=== PATIENT | male | born 1965 | race Caucasian/White ===

== ENCOUNTER 2016-12-16 13:18 | Observation (INO) | payer OTHER ==
[~2016-12-16] VITALS: Ht 170.2 cm; Wt 83.7 kg
[~2016-12-16 13:18] MED LIST: ALBUAER19 INH; ASPI1TAB83 PO; CICL160A INH; DIPH50TA10 PO; INSUINJ4 SQ; ISON300T4 PO; LATA0.009 OPB; LOVA20TA4 PO; MELO15TA4 PO; METO50TA17 PO; MTR/600 PO; NYSTPOW2 TOP; PYRI50TA77 PO; SERT-234 PO
[2016-12-16 13:57] LABS: BASO % 0.8 %; BASO ABS # 0.07 K/uL (0-0.2); COMPLETE YES; HEMATOCRIT 40.8 % (42-52); IG% 0.2 %; LYMPH % 28.2 %; LYMPH ABS # 2.52 K/uL (1.2-3.4); MEAN CELL VOLUME 94.4 fL (80-100); MEAN CORPUSCULAR HEMOGLOBIN 30.8 pg (25-34); MEAN CORPUSCULAR HGB CONC 32.6 g/dl (32-36); MEAN PLATELET VOLUME 8.5 fL (7.4-10.4); MONO % 10.2 %; NEUT % 58.6 %; PLATELET COUNT 304 K/uL (130-400); RED BLOOD COUNT 4.32 M/uL (4.7-6.1); WHITE BLOOD COUNT 8.94 K/uL (4.8-10.8)
[2016-12-16] MEDS ORDERED: LRS20 PO ×2 (14:03→14:36)
[2016-12-16] MEDS ORDERED: DULO60CA44 PO ×2 (14:04→14:36)
[2016-12-16] MEDS ORDERED: DORZ2SOL17 OP ×2 (14:04→14:36)
[2016-12-16] MEDS ORDERED: GUAI1TAB27 PO ×2 (14:05→14:36)
[2016-12-16] MEDS ORDERED: KETO10TA PO ×2 (14:06→14:36)
[2016-12-16] MEDS ORDERED: LATA0.5S OP ×2 (14:06→14:36)
[2016-12-16] MEDS ORDERED: LISI-729 PO (14:07)
[2016-12-16] MEDS ORDERED: LOVA40TA4 PO ×2 (14:07→14:36)
[2016-12-16] MEDS ORDERED: MICO2CRE63 TOP (14:09)
[2016-12-16] MEDS ORDERED: MIRT15TA2 PO ×2 (14:09→14:36)
[2016-12-16] MEDS ORDERED: NTRGSL/4 UT ×2 (14:10→14:36)
--- NOTE | 2016-12-16 14:11 | DIAGNOSTIC IMAGING REPORT ---
CHEST ONE VIEW PORTABLE HISTORY: 51 years-old Male Chest Pain acute atypical chest pain. COMPARISON: None available. TECHNIQUE: Portable upright AP view of the chest FINDINGS: Cardiac silhouette is upper limits of normal. Prior median sternotomy. There is atherosclerosis of the aorta. No pneumothorax, pleural effusion or focal airspace consolidation. Fusion hardware involves the lower cervical spine. IMPRESSION: No acute cardiopulmonary process. The above report was generated using voice recognition software. It may contain grammatical, syntax or spelling errors. Electronically signed by: Jose L Velez M.D. 12/16/2016 2:10 PM Dictated Date/Time: 12/16/2016 2:07 PM
[2016-12-16] MEDS ORDERED: INSHNI SC ×2 (14:12→14:36)
[2016-12-16] MEDS ORDERED: SRVDIN50 INH ×2 (14:12→14:36)
[2016-12-16] MEDS ORDERED: NYST100016 TOP (14:12)
[2016-12-16 14:14] LABS: BLOOD UREA NITROGEN 16 mg/dl (7-18); BUN/CREATININE RATIO 17.5 (10-20); CALCIUM 8.2 mg/dl (8.5-10.1); CARBON DIOXIDE 27 mmol/L (21-32); CHLORIDE 110 mmol/L (98-107); GLUCOSE 97 mg/dl (70-99); SODIUM 141 mmol/L (136-145)
[2016-12-16] MEDS ORDERED: ASPI81TA28 PO (14:36)
[2016-12-16] MEDS ORDERED: METO50TA16 PO (14:36)
[2016-12-16] MEDS ORDERED: NYST80OI TOP (14:36)
[2016-12-16] MEDS ORDERED: LISI5TAB PO (14:36)
[2016-12-16] MEDS ORDERED: MICO2CRE48 TOP (14:36)
[2016-12-16] MEDS ORDERED: CICL160A INH (14:36)
[2016-12-16] MEDS ORDERED: VNTHFA/IN INH (14:38)
[2016-12-16] MEDS ORDERED: TMPOPS15 OPB (14:38)
[2016-12-16 15:03] VITALS: BP 112/72; PULSE 54; TEMP 36.7; O2SAT 95; Ht 170.2 cm; Wt 83.7 kg
[2016-12-16] MEDS ORDERED: NITROGLYCERIN 0.4 MG SL PER TAB CHARGE SL PRN ×2 (15:15→16:15)
[2016-12-16] MEDS ORDERED: PNEUMOCOCCAL POLYSACCHARIDES 25 MCG/0.5 ML VIAL/SYR IM. ONE (15:45)
[2016-12-16] MEDS ORDERED: PNEUMOCOCCAL ADMINISTRATION CHARGE ONE (15:45)
[2016-12-16] MEDS ORDERED: GLUCOSE 40% GEL 15 GM TUBE PO PRN (16:15)
[2016-12-16] MEDS ORDERED: DEXTROSE 50% 50 ML SYR IV PRN (16:15)
[2016-12-16] MEDS ORDERED: ONDANSETRON INJ 2 MG/ML 2 ML VIAL IV PRN (16:15)
[2016-12-16] MEDS ORDERED: ALBUTEROL HFA 8 GM INHALER INH PRN (16:15)
[2016-12-16] MEDS ORDERED: GLUCAGON FOR INJ 1 MG VIAL SQ PRN (16:15)
[2016-12-16] MEDS ORDERED: POLYETHYLENE (MIRALAX) 17 GM PACK PO PRN (16:15)
[2016-12-16] MEDS ORDERED: GLUCOSE 10 TABS/TUBE PO PRN (16:15)
[2016-12-16] MEDS ORDERED: OPTIRAY 320 IV PRN (17:00)
[2016-12-16] MEDS ORDERED: IV FLUIDS COMPLETED PRN (17:00)
--- NOTE | 2016-12-16 17:07 | DIAGNOSTIC IMAGING REPORT ---
CHEST COMBO ANGIO DISSECTION CLINICAL HISTORY: Chest pain. COMPARISON STUDY: Chest radiograph December 16, 2016. TECHNIQUE: Unenhanced and arterial phase imaging of the chest was performed. Injection 119 cc Optiray 320 IV was uneventful. Sagittal and coronal reconstructions were viewed as well as maximal intensity projections on an independent 3-D workstation. FINDINGS: The caliber of the thoracic aorta is normal. There is no evidence of thoracic aortic dissection or intramural hematoma. The heart is mildly enlarged. There are postsurgical findings consistent with median sternotomy and coronary bypass grafting. Central airways are patent. No pneumothorax or pleural effusion is present. Groundglass opacities favor atelectasis. There is no consolidation to suggest pneumonia. No enlarged thoracic lymph nodes are present. There is bilateral gynecomastia. No pulmonary emboli are identified. Visualized portions of the upper abdomen are unremarkable. The bony thorax is unremarkable. IMPRESSION: 1. No thoracic aortic dissection. 2. No acute intrathoracic findings. No pulmonary emboli identified. 3. Mild cardiomegaly. Status post median sternotomy and coronary artery bypass grafting. Electronically signed by: Feng Arthur M.D. 12/16/2016 5:05 PM Dictated Date/Time: 12/16/2016 4:55 PM
--- NOTE | 2016-12-16 17:26 | History and Physical ---
History & Physical Date & Time of Service: Dec 16, 2016 at 17:12 Chief Complaint: Chest Pain Primary Care Physician: Radha BELL History of Present Illness Source: patient, clinic records, EMS Attending: Dr. Dupont Patient is a 51-year-old male with significant past medical history of coronary artery disease with subjective history of W[place] 5 with subsequent CABG 2 approximately 3 years ago who initially presented to the emergency department from [facility] with complaints of worsening frequency of chest pain and increasing use of sublingual nitroglycerin. The patient reports having had 5 MIs leading to a double bypass surgery that was performed in [facility]. Since his CABG, he has not had cardiology follow-up. He has taken his prescribed medications, however. He reports that prior to the last few days, he has only had to use nitroglycerin occasionally. He became concerned as his symptoms of chest pain have increased in frequency causing him to take up to 2-3 subungual nitroglycerin per day to help with his symptoms. He reports that his chest pain is independent of activity. It sometimes wakes him from sleep. He describes his heart racing and then slowing with associated sweatiness. He reports that this proceeds the chest pain. He describes it as the "exact same" pain he experienced during his previous MIs. Today, he did take a nitroglycerin and then report to the [facility] where he was provided a second nitroglycerin. An EKG was obtained and the patient was subsequently directed to the emergency department. The patient received a total of 3 nitroglycerin today. He reports that he is completely chest pain-free at this time. During his chest pain episodes he denies any associated headaches, dizziness, lightheadedness, hemoptysis, nausea, vomiting, or abdominal pain. He does complain of chronic neck and low back pain for which he had been treated with multiple narcotic pain medications in the outpatient setting. He was recently started on baclofen and Ultram this past week. He reports that his done nothing for his symptoms. On presentation to the emergency department, the patient was found to have an unchanged EKG from prior. He has no elevation of troponin. Cardiac enzymes are otherwise unremarkable. He had an unremarkable chest x-ray. Patient received no other medications while the emergency Department. 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 Social History Smoking Status: Current Every Day Smoker (4-5/day - h/o 1ppd x31 yrs - attempting to quit) Smokeless Tobacco Use: No Alcohol Use: Drug Use: cocaine (previous) Marital Status: single Housing status: other Occupational Status: other ([employer]) Immunizations History of Influenza Vaccine: Yes History of Tetanus Vaccine?: Yes History of Pneumococcal: Yes History of Hepatitis B Vaccine: Yes Multi-Drug Resistant Organisms History of MDRO: No Allergies Coded Allergies: No Known Allergies (Unverified , 12/16/16) Home Medications Scheduled Aspirin (Aspirin Ec), 81 MG PO DAILY Baclofen (Baclofen), 20 MG PO TID Ciclesonide (Alvesco), 1 PUFF INH BID Dorzolamide Hcl (Trusopt Oph), 1 DROPS OP BID Duloxetine Hcl (Cymbalta), 60 MG PO DAILY Guaifenesin (Guaifenesin), 400 MG PO TID Insulin Human NPH (Humulin N), 5 UNITS SC BID Latanoprost (Xalatan 0.005% Oph Daniella), 1 DROPS OP DAILY Lisinopril (Prinivil), 5 MG PO DAILY Lovastatin (Mevacor), 40 MG PO HS Metoprolol Tartrate (Lopressor) (Lopressor), 50 MG PO BID Miconazole Nitrate Vaginal (Miconazole), 1 APPLN TOP BID Mirtazapine Soltab (Remeron Soltab), 15 MG PO HS Nitroglycerin (Nitrostat), 0.4 MG UT PRN Nystatin (Topical) (Nystatin), 1 APPLN TOP BID Salmeterol Xinafoate (Serevent Diskus), 1 PUFF INH BID Timolol Maleate (Timolol 0.5% Oph Soln 15 Ml), 1 DROP OPB QAM Scheduled PRN Albuterol Hfa (Ventolin Hfa), 2 PUFFS INH QID PRN for SOB/Wheezing Ketorolac Tromethamine (Toradol), 10 MG PO TID PRN for Pain Review of Systems A complete 10-point Review of Systems was discussed with the patient, with pertinent positives and negatives listed in the History of Present Illness. All remaining Review of Systems questions can be considered negative unless otherwise specified. Physical Exam Vital Signs Date Time Temp Pulse Resp B/P (MAP) Pulse Ox O2 Delivery O2 Flow Rate FiO2 12/16/16 16:35 61 10 114/82 94 Room Air 12/16/16 16:05 53 15 107/72 94 Room Air 12/16/16 15:06 55 20 119/77 94 Room Air 12/16/16 15:03 36.7 54 20 112/72 95 Room Air 12/16/16 14:30 53 20 130/76 94 Room Air 12/16/16 14:00 50 14 120/75 93 Room Air 12/16/16 13:37 54 12/16/16 13:30 95 Room Air 12/16/16 13:30 36.7 51 14 131/85 95 Room Air 12/16/16 13:30 95 Room Air VITAL SIGNS - Vital signs and nursing notes were reviewed. SKIN - Multiple tattoos. Well healed incision site to the central portion of the chest. GENERAL - 51-year-old male appearing his stated age who is in no acute distress. Communicates well with provider and answers questions appropriately. HEAD - NC/AT. EYES - PERRL with EOMI bilaterally. Sclera anicteric. Palpebral conjunctiva pink and moist with no injection noted. EARS - No deformities of external structures noted on gross examination bilaterally. No pain elicited with palpation of the tragus bilaterally. External auditory canals without discharge or otorrhea. Tympanic membranes pearly marie without retraction or bulging. NOSE - Midline and without cyanosis. No epistaxis or purulent drainage noted. Septum midline without deviation or septal hematoma noted. MOUTH/OROPHARYNX - Without perioral cyanosis. Buccal mucosa pink and moist and without leukoplakia. Tongue midline with equal elevation of palate bilaterally. No tonsillar hypertrophy, erythema, or exudates noted. NECK - Neck with FROM. LUNGS - Chest wall symmetric without accessory muscle use, intercostals retractions, or central cyanosis. Normal vesicular breath sounds CTA B/L. No wheezes, rales, or rhonchi appreciated. CARDIAC - RRR with S1/S2. No murmur, rubs, or gallops appreciated. ABDOMEN - Abdominal contour flat and without pulsations or visible masses. BS normoactive all four quadrants. Subjective TTP in the upper abdomen which was not present with distraction. No palpable masses, hepatosplenomegaly, or ascites noted. EXTREMITIES - No clubbing or peripheral cyanosis. No pretibial edema present. +5 /5 strength noted in UE/LE bilaterally. NEUROLOGIC - Cranial nerves II through XII grossly intact. Sensory intact to light touch throughout. PSYCH - A&Ox3 and cooperates fully with examiner. Pt is very pleasant and interacts well with examiner. Diagnostics Laboratory Results Results Past 24 Hours Test 12/16/16 13:40 12/16/16 16:12 Range/Units White Blood Count 8.94 4.8-10.8 K/uL Red Blood Count 4.32 4.7-6.1 M/uL Hemoglobin 13.3 14.0-18.0 g/dL Hematocrit 40.8 42-52 % Mean Corpuscular Volume 94.4 80-100 fL Mean Corpuscular Hemoglobin 30.8 25-34 pg Mean Corpuscular Hemoglobin Concent 32.6 32-36 g/dl Platelet Count 304 130-400 K/uL Mean Platelet Volume 8.5 7.4-10.4 fL Neutrophils (%) (Auto) 58.6 % Lymphocytes (%) (Auto) 28.2 % Monocytes (%) (Auto) 10.2 % Eosinophils (%) (Auto) 2.0 % Basophils (%) (Auto) 0.8 % Neutrophils # (Auto) 5.24 1.4-6.5 K/uL Lymphocytes # (Auto) 2.52 1.2-3.4 K/uL Monocytes # (Auto) 0.91 0.11-0.59 K/uL Eosinophils # (Auto) 0.18 0-0.5 K/uL Basophils # (Auto) 0.07 0-0.2 K/uL RDW Standard Deviation 49.8 36.4-46.3 fL RDW Coefficient of Variation 14.4 11.5-14.5 % Immature Granulocyte % (Auto) 0.2 % Immature Granulocyte # (Auto) 0.02 0.00-0.02 K/uL Sodium Level 141 136-145 mmol/L Potassium Level 4.0 3.5-5.1 mmol/L Chloride Level 110 98-107 mmol/L Carbon Dioxide Level 27 21-32 mmol/L Anion Gap 4.0 3-11 mmol/L Blood Urea Nitrogen 16 7-18 mg/dl Creatinine 0.90 0.60-1.40 mg/dl Est Creatinine Clear Calc Drug Dose 101.5 ml/min Estimated GFR () 114.2 Estimated GFR (Non- 98.5 BUN/Creatinine Ratio 17.5 10-20 Random Glucose 97 70-99 mg/dl Calcium Level 8.2 8.5-10.1 mg/dl Total Creatine Kinase 59 39-308 U/L Creatine Kinase MB < 0.5 0.5-3.6 ng/ml Creatine Kinase MB Ratio 0-3.0 Troponin I < 0.015 0-0.045 ng/ml Diagnostic Radiology Radiological imaging and reports were reviewed by myself. Radiologist's Interpretation as follows: CHEST ONE VIEW PORTABLE HISTORY: 51 years-old Male Chest Pain acute atypical chest pain. COMPARISON: None available. TECHNIQUE: Portable upright AP view of the chest FINDINGS: Cardiac silhouette is upper limits of normal. Prior median sternotomy. There is atherosclerosis of the aorta. No pneumothorax, pleural effusion or focal airspace consolidation. Fusion hardware involves the lower cervical spine. IMPRESSION: No acute cardiopulmonary process. CHEST COMBO ANGIO DISSECTION CLINICAL HISTORY: Chest pain. COMPARISON STUDY: Chest radiograph December 16, 2016. TECHNIQUE: Unenhanced and arterial phase imaging of the chest was performed. Injection 119 cc Optiray 320 IV was uneventful. Sagittal and coronal reconstructions were viewed as well as maximal intensity projections on an independent 3-D workstation. FINDINGS: The caliber of the thoracic aorta is normal. There is no evidence of thoracic aortic dissection or intramural hematoma. The heart is mildly enlarged. There are postsurgical findings consistent with median sternotomy and coronary bypass grafting. Central airways are patent. No pneumothorax or pleural effusion is present. Groundglass opacities favor atelectasis. There is no consolidation to suggest pneumonia. No enlarged thoracic lymph nodes are present. There is bilateral gynecomastia. No pulmonary emboli are identified. Visualized portions of the upper abdomen are unremarkable. The bony thorax is unremarkable. IMPRESSION: 1. No thoracic aortic dissection. 2. No acute intrathoracic findings. No pulmonary emboli identified. 3. Mild cardiomegaly. Status post median sternotomy and coronary artery bypass grafting. EKG EKG was obtained and reviewed by myself. EKG demonstrates a sinus bradycardia at a rate of [address] or T-wave abnormalities appreciated per interpretation. EKG essentially unchanged from 04/25/2015. Impression Assessment and Plan 51-year-old male admitted to telemetry and observation status for cardiac rule out in the setting of significant cardiac disease with CABG 2. CHEST PAIN with H/O CAD, HTN, CABG x2: * Patient is without chest pain at this time. He does have significant past medical history which is concerning without recent evaluation. He has no EKG changes suggestive of acute event at this point. * Trend troponin every 8 hours. * A.m. EKGs and EKGs with chest pain. * Echocardiogram for further evaluation. * Continue with metoprolol, Cipro, lovastatin, and nitroglycerin when necessary. * Appreciate cardiology consultation. COPD: * Will continue home inhalers. * Will substitute Flovent for Alvesco. * Will add nebulizers every 6 when necessary cough/wheezing. * Chest x-ray and CT unremarkable. HISTORY OF LATENT TUBERCULOSIS: * Subjectively completed course of antibiotics. * Imaging studies not suggestive of acute infection or worrisome lesions. IDDM: * Insulin coverage per nursing protocol. * A1c pending. * Appreciate glycemic consultation. GLAUCOMA: * Continue home medications. CHRONIC PAIN: * Continue baclofen and Toradol as previously prescribed. * Would avoid narcotic pain medications in the setting of this patient given his history of substance abuse. * Will add PO Tylenol pending LFTs. TOBACCO ABUSE: * Provided smoking cessation. * Will provided Nicotine patch PRN. PSYCH: * Continue Remeron and Cymbalta. Please refer to my attending physician's documentation for any further recommendations Resident Physician Supervision Note: Pt seen examined independently. I discussed the case with the PA and agree with the findings and plan as documented in the note. Any exceptions or clarifications are listed here: Documented By: Juan Dupont 51 y/o M extensive history of CAD - WY x 5 - bypass - 2 vessel 3 yrs prior presenting from [facility] with CP Inital w/u WNL OE AAO x 3 S1,2 R CTAB NT, ND No CCE Pt has poor understanding of medical issues - suspect baseline mild cognitive impairment P: He may need f/u for multiple issues inc lung disease - COPD and was recently treated for latent TB Describes night sweats and occ SOB so we will obtain a CTA prior to DC Would hold off on additional [place] aside from a R/O as he has adequate outpt f/u Advised on smoking cessation Above discussed with pt, PA, ER attending Level of Care Telemetry (observation) Advanced Directives Existing Advance Directive: No Existing Living Will: No Existing Power of Car Dumper Operator: No Existing Health Care Proxy: Yes ([facility]) Resuscitation Status FULL RESUSCITATION VTE Prophylaxis VTE Risk Assessment Done? Y/N: Yes Risk Level: Moderate Given or contraindicated: Unfractionated heparin SQ, SCD's Social Service Consult None Apply
--- NOTE | 2016-12-16 17:27 | EMERGENCY ROOM VISIT NOTE ---
History Report prepared by Aminah: Annette Santillan Under the Supervision of: Dr. Dat Quick D.O. First contact with patient: 13:18 Stated Complaint: CHEST PAIN History of Present Illness The patient is a 51 year old male who presents to the Emergency Room with complaints of intermittent chest pain for the past few days. 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 Over the past few days he has been having central chest paint that he describes as both sharp and a pressure. He states that this feels very similar to the pain he had with his previous MIs. The patient states that his heart has been racing and he has been flushed and diaphoretic. He has been taking nitro for his pain and that has been helping. He received aspirin in the ambulance en route to the hospital. The patient denies any arm pain or jaw pain, and notes that he never had that with his previous MIs. He estimates that his most recent cardiac catheterization was about 6 years ago. Pt denies headache,fevers, nausea, vomiting, diarrhea, pain with urination, and melena. He denies any new shortness of breath. Source of History: patient Onset: a few days ago Position: chest Quality: pressure, sharp Timing: intermittent Modifying Factors (Relieving): other (nitro) Associated Symptoms: + diaphoresis, No fevers, No headache, No SOB, No nausea, No vomiting, No melena, No diarrhea, No urinary symptoms Review of Systems See HPI for pertinent positives & negatives. A total of 10 systems reviewed and were otherwise negative. 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 Social History Smoking Status: Current Every Day Smoker Drug Use: none Marital Status: single Housing Status: other Occupation Status: other Current/Historical Medications Scheduled Aspirin (Aspirin Ec), 81 MG PO DAILY Baclofen (Baclofen), 20 MG PO TID Ciclesonide (Alvesco), 1 PUFF INH BID Dorzolamide Hcl (Trusopt Oph), 1 DROPS OP BID Duloxetine Hcl (Cymbalta), 60 MG PO DAILY Guaifenesin (Guaifenesin), 400 MG PO TID Insulin Human NPH (Humulin N), 5 UNITS SC BID Latanoprost (Xalatan 0.005% Oph Daniella), 1 DROPS OP DAILY Lisinopril (Prinivil), 5 MG PO DAILY Lovastatin (Mevacor), 40 MG PO HS Metoprolol Tartrate (Lopressor) (Lopressor), 50 MG PO BID Miconazole Nitrate Vaginal (Miconazole), 1 APPLN TOP BID Mirtazapine Soltab (Remeron Soltab), 15 MG PO HS Nitroglycerin (Nitrostat), 0.4 MG UT PRN Nystatin (Topical) (Nystatin), 1 APPLN TOP BID Salmeterol Xinafoate (Serevent Diskus), 1 PUFF INH BID Timolol Maleate (Timolol 0.5% Oph Soln 15 Ml), 1 DROP OPB QAM Scheduled PRN Albuterol Hfa (Ventolin Hfa), 2 PUFFS INH QID PRN for SOB/Wheezing Ketorolac Tromethamine (Toradol), 10 MG PO TID PRN for Pain Allergies Coded Allergies: No Known Allergies (Unverified , 12/16/16) Physical Exam Vital Signs Date Time Temp Pulse Resp B/P (MAP) Pulse Ox O2 Delivery O2 Flow Rate FiO2 12/16/16 16:35 61 10 114/82 94 Room Air 12/16/16 16:05 53 15 107/72 94 Room Air 12/16/16 15:06 55 20 119/77 94 Room Air 12/16/16 15:03 36.7 54 20 112/72 95 Room Air 12/16/16 14:30 53 20 130/76 94 Room Air 12/16/16 14:00 50 14 120/75 93 Room Air 12/16/16 13:37 54 12/16/16 13:30 95 Room Air 12/16/16 13:30 36.7 51 14 131/85 95 Room Air 12/16/16 13:30 95 Room Air Physical Exam GENERAL: alert, sitting up in bed, well appearing, well nourished, no distress, non-toxic EYE EXAM: normal conjunctiva OROPHARYNX: no exudate, no erythema, lips, buccal mucosa, and tongue normal and mucous membranes are moist NECK: supple, no nuchal rigidity, no adenopathy, non-tender LUNGS: Clear to auscultation. Normal chest wall mechanics HEART: no murmurs, S1 normal and S2 normal CHEST: Old midline sternal incision ABDOMEN: abdomen soft, non-tender, normo-active bowel sounds, no masses, no rebound or guarding. BACK: Back is symmetrical on inspection and there is no deformity, no midline tenderness, no CVA tenderness. SKIN: no rashes and no bruising, multiple tattoos UPPER EXTREMITIES: upper extremities are grossly normal. Radial pulses equal bilaterally. LOWER EXTREMITIES: No pitting edema. Calves equal bilaterally. NEURO EXAM: Normal sensorium, cranial nerves II-XII grossly intact, normal speech, no gross weakness of arms, no gross weakness of legs. Medical Decision & Procedures ER Provider Diagnostic Interpretation: Repeat ECG reveals sinus bradycardia at 56, left axis deviation, septal Q-waves , no ectopy. Radiology results as stated below per my review and the radiologist's interpretation: CHEST ONE VIEW PORTABLE HISTORY: 51 years-old Male Chest Pain acute atypical chest pain. COMPARISON: None available. TECHNIQUE: Portable upright AP view of the chest FINDINGS: Cardiac silhouette is upper limits of normal. Prior median sternotomy. There is atherosclerosis of the aorta. No pneumothorax, pleural effusion or focal airspace consolidation. Fusion hardware involves the lower cervical spine. IMPRESSION: No acute cardiopulmonary process. The above report was generated using voice recognition software. It may contain grammatical, syntax or spelling errors. Electronically signed by: Jose L Velez M.D. 12/16/2016 2:10 PM Dictated Date/Time: 12/16/2016 2:07 PM Laboratory Results 12/16/16 13:40 Red Blood Count 4.32, Mean Corpuscular Volume 94.4, Mean Corpuscular Hemoglobin 30.8, Mean Corpuscular Hemoglobin Concent 32.6, Mean Platelet Volume 8.5, Neutrophils (%) (Auto) 58.6, Lymphocytes (%) (Auto) 28.2, Monocytes (%) (Auto) 10.2, Eosinophils (%) (Auto) 2.0, Basophils (%) (Auto) 0.8, Neutrophils # (Auto ) 5.24, Lymphocytes # (Auto) 2.52, Monocytes # (Auto) 0.91, Eosinophils # (Auto ) 0.18, Basophils # (Auto) 0.07 12/16/16 13:40 Test 12/16/16 13:40 White Blood Count 8.94 K/uL (4.8-10.8) Red Blood Count 4.32 M/uL (4.7-6.1) Hemoglobin 13.3 g/dL (14.0-18.0) Hematocrit 40.8 % (42-52) Mean Corpuscular Volume 94.4 fL (80-100) Mean Corpuscular Hemoglobin 30.8 pg (25-34) Mean Corpuscular Hemoglobin Concent 32.6 g/dl (32-36) Platelet Count 304 K/uL (130-400) Mean Platelet Volume 8.5 fL (7.4-10.4) Neutrophils (%) (Auto) 58.6 % Lymphocytes (%) (Auto) 28.2 % Monocytes (%) (Auto) 10.2 % Eosinophils (%) (Auto) 2.0 % Basophils (%) (Auto) 0.8 % Neutrophils # (Auto) 5.24 K/uL (1.4-6.5) Lymphocytes # (Auto) 2.52 K/uL (1.2-3.4) Monocytes # (Auto) 0.91 K/uL (0.11-0.59) Eosinophils # (Auto) 0.18 K/uL (0-0.5) Basophils # (Auto) 0.07 K/uL (0-0.2) RDW Standard Deviation 49.8 fL (36.4-46.3) RDW Coefficient of Variation 14.4 % (11.5-14.5) Immature Granulocyte % (Auto) 0.2 % Immature Granulocyte # (Auto) 0.02 K/uL (0.00-0.02) Anion Gap 4.0 mmol/L (3-11) Est Creatinine Clear Calc Drug Dose 101.5 ml/min Estimated GFR () 114.2 Estimated GFR (Non- 98.5 BUN/Creatinine Ratio 17.5 (10-20) Calcium Level 8.2 mg/dl (8.5-10.1) Total Creatine Kinase 59 U/L (39-308) Creatine Kinase MB < 0.5 ng/ml (0.5-3.6) Creatine Kinase MB Ratio (0-3.0) Troponin I < 0.015 ng/ml (0-0.045) Laboratory results per my review. Medications Administered Medications (Trade) Dose Ordered Sig/Los Route Start Time Stop Time Status Last Admin Dose Admin Nitroglycerin (Nitrostat Tab) 0.4 mg Q5M PRN SL 12/16/16 15:15 01/15/17 15:14 12/16/16 15:07 0.4 MG ECG Indication: chest pain Rate (beats per minute): 52 Rhythm: sinus bradycardia Findings: Q waves (Septal), left axis deviation Comparison ECG Date: 04/25/2015 Change: no significant change ED Course ED COURSE: Vital signs were reviewed and showed bradycardic The patients medical record was reviewed The above diagnostic studies were performed and reviewed. ED treatments and interventions as stated above. 1318: The patient was evaluated in room A3. A complete history and physical examination was performed. 1435: I spoke with Dr. Dupont. We discussed the patient's case. The patient will be evaluated by the [facility] for further management. 1441: Upon reevaluation, the patient is resting comfortably. I discussed my findings with the patient and he understands and agrees with the treatment plan. Based on the patients age, coexisting illnesses, exam and lab findings the decision to treat as an inpatient was made. The patient remained stable while under my care. The patient appeared well at the time of discharge. 1515: Nitroglycerin 0.4 mg SL - PRN Medical Decision Differential diagnoses includes but is not limited to acute coronary syndrome, myocardial infarction, pericarditis, pulmonary embolus, aortic dissection, pneumonia, pneumothorax, musculoskeletal, shingles, esophageal. Patient is a 51-year-old male presents to the ER for midsternal chest pain which she describes as sharp and pressure. He notes this does feel like his previous NH. He has had a previous bypass greater than 6 years ago. CBC or BMP , LFTs and troponin were unremarkable. EKG was unremarkable. Patient was pain free but did have a recurrence of this chest pain and was given nitroglycerin and repeat EKG which was unchanged. Patient was discussed with internal medicine and admitted for precordial chest pain. Medication Reconcilliation Current Medication List: was personally reviewed by me Blood Pressure Screening Patient's blood pressure: Normal blood pressure Consults Time Called: 1432 Consulting Physician: Dr. Dupont Returned Call: [address] Dupont. We discussed the patient's case. The patient will be evaluated by the [facility] for further management. Impression Primary Impression: Precordial chest pain Scribe Attestation The scribe's documentation has been prepared under my direction and personally reviewed by me in its entirety. I confirm that the note above accurately reflects all work, treatment, procedures, and medical decision making performed by me. Departure Information Dispostion Being Evaluated By Hospitalist Referrals Radha BELL (PCP)
[2016-12-16 17:31] LABS: ALKALINE PHOSPHATASE 98 U/L (45-117); ALT/SGPT 27 U/L (12-78); AST/SGOT 12 U/L (15-37)
[2016-12-16] MEDS ORDERED: PHARMACY GLYCEMIC MGMT CONSULT PRN (17:54)
[2016-12-16 18:42] LABS: INR 0.9 (0.9-1.1)
[2016-12-16] MEDS: KETOROLAC TROMETHAMINE 10 MG TAB PO PRN (18:58)
[2016-12-16 19:04] VITALS: BP 131/78; PULSE 54; TEMP 36.6; O2SAT 96
[2016-12-16] MEDS: ALBUTEROL 0.5% NEB SOLN 2.5 MG/0.5 ML VIAL INH SCH (19:56)
[2016-12-16 19:57] VITALS: PULSE 56; O2SAT 94
[2016-12-16 20:00] VITALS: O2SAT 95
[2016-12-16] MEDS: MICONAZOLE NITRATE 2% CR 30 GM TUBE EXT SCH (20:42)
[2016-12-16] MEDS: BACLOFEN TAB 20 MG TAB PO SCH (20:43)
[2016-12-16] MEDS: DORZOLAMIDE HCL 2% OPH SOLN 10 ML BTL OP SCH (20:43)
[2016-12-16] MEDS: METOPROLOL TARTRATE 50 MG TAB PO SCH (20:43)
[2016-12-16] MEDS ORDERED: MIRTAZAPINE TAB 15 MG TAB PO SCH (21:00)
[2016-12-16] MEDS ORDERED: INSULIN ASPART 100 UNITS/ML 3 ML PEN SC SCH (21:00)
[2016-12-16] MEDS: FLUTICASONE PROP HFA INH 44 MCG INHALER INH SCH (22:16)
[2016-12-16] MEDS: HEPARIN SOD 5000 UNIT/0.5 ML CARP SQ SCH (22:16)
[2016-12-16 22:33] LABS: CKMB/CK RATIO 1.2 (0-3.0)
[2016-12-17] VITALS (7 sets, daily range): BP systolic 123–129; BP diastolic 76–87; PULSE 52–86; TEMP 36.6–36.7; O2SAT 92–95
[2016-12-17] MEDS: ALBUTEROL 0.5% NEB SOLN 2.5 MG/0.5 ML VIAL INH SCH ×2 (02:19→07:17)
[2016-12-17] MEDS: KETOROLAC TROMETHAMINE 10 MG TAB PO PRN ×2 (02:49→09:20)
[2016-12-17] MEDS: INSULIN ASPART 100 UNITS/ML 3 ML PEN SC SCH ×3 (04:00→07:52)
[2016-12-17] MEDS: BACLOFEN TAB 20 MG TAB PO SCH (05:53)
[2016-12-17] MEDS: HEPARIN SOD 5000 UNIT/0.5 ML CARP SQ SCH (05:54)
[2016-12-17 06:29] LABS: CKMB/CK RATIO 1.5 (0-3.0)
[2016-12-17 06:36] LABS: ESTIMATED AVERAGE GLUCOSE 151 mg/dl; HA1C FLAG Normal (Normal)
[2016-12-17] MEDS: METOPROLOL TARTRATE 50 MG TAB PO SCH (07:41)
[2016-12-17] MEDS: DORZOLAMIDE HCL 2% OPH SOLN 10 ML BTL OP SCH (07:42)
[2016-12-17] MEDS: FLUTICASONE PROP HFA INH 44 MCG INHALER INH SCH (07:42)
[2016-12-17] MEDS: MICONAZOLE NITRATE 2% CR 30 GM TUBE EXT SCH (07:43)
[2016-12-17] MEDS ORDERED: DULOXETINE HCL 60 MG CAP PO SCH (09:00)
[2016-12-17] MEDS ORDERED: LISINOPRIL 5 MG TAB PO SCH (09:00)
[2016-12-17] MEDS ORDERED: ASPIRIN 81 MG ECTAB PO SCH (09:00)
[2016-12-17] MEDS ORDERED: LATANOPROST 0.005% OP SOLN 2.5 ML BTL OP SCH (09:00)
[2016-12-17] MEDS ORDERED: NICOTINE 14 MG/24 HR TDSY TD SCH (09:00)
[2016-12-17] MEDS ORDERED: METOPROLOL TARTRATE 1 MG/ML VIAL ONE (10:31)
[2016-12-17] MEDS ORDERED: ATROPINE SULFATE 0.1 MG/ML 5ML SYR ONE (10:31)
[2016-12-17] MEDS ORDERED: DOBUTamine 500MG / 250ML D5W ONE (10:32)
[2016-12-17] MEDS ORDERED: INSULIN ASPART 100 UNITS/ML 3 ML PEN SC SCH (11:00)
--- NOTE | 2016-12-17 11:16 | Pharmacy Progress Note ---
Glycemic Control Intl Consult Date of Service Dec 17, 2016. Scope Glycemic Pharmacist consulted by Bulmaro Nguyễn on 12/16/16 for glycemic control and to write orders per [facility] inpatient glycemic control protocol Objective Weight (Kilograms): 83.700 Accuchecks BSG (last 24hrs): Test 12/16/16 13:40 12/16/16 18:47 12/16/16 23:54 12/17/16 03:35 Random Glucose 97 mg/dl (70-99) Bedside Glucose 102 mg/dl (70-99) 107 mg/dl (70-99) 106 mg/dl (70-99) Laboratory Data (last 24hrs) Test 12/16/16 13:40 Anion Gap 4.0 mmol/L BUN/Creatinine Ratio 17.5 Blood Urea Nitrogen 16 mg/dl Creatinine 0.90 mg/dl Hemoglobin A1c 6.9 % Potassium Level 4.0 mmol/L Sodium Level 141 mmol/L White Blood Count 8.94 K/uL Red Blood Count 4.32 M/uL Hemoglobin 13.3 g/dL Hematocrit 40.8 % Mean Corpuscular Volume 94.4 fL Mean Corpuscular Hemoglobin 30.8 pg Mean Corpuscular Hemoglobin Concent 32.6 g/dl Platelet Count 304 K/uL Mean Platelet Volume 8.5 fL Neutrophils (%) (Auto) 58.6 % Lymphocytes (%) (Auto) 28.2 % Monocytes (%) (Auto) 10.2 % Eosinophils (%) (Auto) 2.0 % Basophils (%) (Auto) 0.8 % Neutrophils # (Auto) 5.24 K/uL Lymphocytes # (Auto) 2.52 K/uL Monocytes # (Auto) 0.91 K/uL Eosinophils # (Auto) 0.18 K/uL Basophils # (Auto) 0.07 K/uL HbA1c Test 12/16/16 13:40 Hemoglobin A1c 6.9 % (4.5-5.6) H Recent Pertinent Medications Outpatient Anti-diabetic Regimen: * NPH 5 units twice daily The patient is currently receiving: * Basal insulin: NONE * Correctional Insulin: Novolog Correction per scale ACHS Goal Range: Low 110 mg/dL - High 150 mg/dL Correction Factor: 40 mg/dL/unit * Prandial insulin: Per carb ratio of 1 unit per 15 grams CHO consumed Risk Factors for Insulin Resistance: * Recent Surgery: dobutamine stress test 12/17/16 * Diet: type 2 diabetic diet Assessment & Plan ASSESSMENT: * ADA & AACE recommend a goal blood sugar range 140-180 mg/dl for the majority of critically ill & non-critically ill patients. However, more stringent targets may be selected in individual cases. Will utilize more stringent goal of 110-150 mg/dl based on patient age & comorbidities. Additionally, tighter glycemic control is warranted to prevent any further cardiac damage. * Ms Downing is a 51 y/o M with a complex cardiac history admitted with chest pain. His PMH includes five MIs and two CABG procedures, COPD, and latent tuberculous. He is well controlled on a home dose of NPH 5 units twice daily while at [facility]. * When patient represented, blood sugars were well controlled in low 100s. Patient was based on weight based stress 1-2 correctional insulin. Patient has not received insulin yet. This is reasonable as his home dose is only 10 units/ day. Continue current regimen, may consider tightening to weight based stress of 2 if blood sugars trend upwards. RECOMMENDATIONS FOR DISCHARGE * Reasonable to continue home dose with A1C below 7% as low as patient has no episodes of hypoglycemia. Thank you.
[2016-12-17] MEDS ORDERED: IMDSR/30 PO (12:24)
--- NOTE | 2016-12-17 12:34 | Discharge Instructions ---
Discharge Instructions Date of Service Dec 17, 2016. Admission Reason for Admission: Chest Pain Discharge Discharge Diagnosis / Problem: Chest pain Discharge Goals Goal(s): Decrease discomfort, Improve function, Diagnostic testing, Therapeutic intervention Activity Recommendations Activity Limitations: resume your previous activity (as tolerated) . Instructions / Follow-Up Instructions / Follow-Up You were admitted to the hospital after presenting with chest pain. Cardiac work up included continuous cardiac monitoring, checking serial cardiac enzymes , and a stress echocardiogram. All of your cardiac testing came back negative. You did not develop any concerning arrhythmias overnight, and your cardiac enzymes remained normal after 3 sets were checked. Your stress echocardiogram ( ultrasound of the heart) was also negative. Cardiology was consulted on your case due to your previous extensive cardiac history, and they recommended that you start a long-acting nitrate for your chest pain since you have been taking your sublingual nitroglycerin so often. You are now medically stable for discharge. Medications: *Please take isosorbide mononitrate (Imdur) 30 mg by mouth daily. This is a long acting nitrate to help with your angina. *Continue your other home medications as prescribed. Follow up: *Follow up with your primary care provider within 1 week following discharge regarding your hospital stay and changes to your medications. Please seek medical attention if you experience fevers, chills, sweats, dizziness/lightheadedness, loss of consciousness, fall, worsening chest pain, shortness of breath, nausea, vomiting, numbness or tingling. Current Hospital Diet Patient's current hospital diet: AHA Diet (Heart Healthy), Diabetes Type 2 Diet Discharge Diet Recommended Diet: AHA Diet (Heart Healthy), Diabetes Type 2 Diet Procedures Procedures Performed: Stress echocardiogram Pending Studies Studies pending at discharge: no Laboratory Results Hemoglobin A1c Test 12/16/16 13:40 Range/Units Estimated Average Glucose 151 mg/dl Hemoglobin A1c 6.9 H 4.5-5.6 % Medical Emergencies . Who to Call and When: Medical Emergencies: If at any time you feel your situation is an emergency, please call 911 immediately. . Non-Emergent Contact Non-Emergency issues call your: Primary Care Provider Call Non-Emergent contact if: you have a fever, your pain is not controlled, your pain is worsening, your pain is unusual for you, your pain is concerning you . Past History Medical & Surgical History: (1) Chest pain . "Provider Documentation" section prepared by Fifi Amin. . VTE Core Measure Inpt VTE Proph given/why not?: Unfractionated heparin SQ, SCD's
--- NOTE | 2016-12-17 12:46 | CARDIOLOGY CONSULTATION ---
DATE OF CONSULTATION: 12/17/2016 CONSULTATION REQUESTED BY: Dr. Diego. REASON FOR CONSULTATION: Chest pain. HISTORY OF PRESENT ILLNESS: Mr. Downing is a 51-year-old male with a history of coronary artery disease with reported 5 prior MIs and a 2-vessel CABG 3 years ago, who was admitted from [facility] last night in the setting of increasing chest pain. The patient states that at baseline, he takes may be 1 or 2 nitros day for episodic chest pain. He is not very active due to joint issues and is able to walk only with the aid of a cane. Denies significant chest pain with exertion at baseline. Over the last few days, he has been having increasing chest pain primarily at rest. This was associated with flushing and shortness of breath and pounding in his chest. These episodes are brief, lasting seconds to minutes. He has been taking more frequent nitroglycerin with these and has noted relief. Due to increasing frequency of symptoms, he presented to the medical unit and was referred here for further evaluation. Upon arrival, the patient was initially chest pain free. Initial EKG showed a sinus rhythm with a left axis deviation and old anteroseptal infarct, but no dynamic ST changes. Troponins have been negative x4. He was continued to have intermittent stabbing left side chest pain, which has been partially treated with nitroglycerin. PAST MEDICAL HISTORY: 1. Coronary artery disease, status post 2 vessel CABG in 2013 reported a history of 5 prior MIs. 2. Type 2 diabetes, on insulin. 3. Hypertension. 4. Asthma/COPD. 5. Ongoing tobacco abuse. 6. GERD. 7. Glaucoma. 8. Lumbar back pain/prior back surgery. FAMILY HISTORY: Father had from an [place] in his 50s. He has a brother with multiple stents. SOCIAL HISTORY: He continues to smoke approximately 4-5 cigarettes a day, has smoked for more than 30 years. Denies any alcohol. Previously used cocaine. Currently resides at [facility] correction. ALLERGIES: No known drug allergies. HOME MEDICATIONS: Aspirin 81, baclofen, ciclesonide, Trusopt eye drops, fluoxetine, guaifenesin, insulin NPH 5 units subQ b.i.d., lisinopril 5 mg, lovastatin 40 mg, metoprolol 50 mg p.o. b.i.d., miconazole, mirtazapine, nitroglycerin sublingual tabs p.r.n., nystatin, salmeterol, and atenolol. REVIEW OF SYSTEMS: Ten point review of systems reviewed and otherwise negative unless stated in the HPI. PHYSICAL EXAMINATION: VITAL SIGNS: Temperature 36.6, pulse 58, blood pressure 129/76, and he is satting 92% on room air. GENERAL: The patient appears comfortable in no acute distress. HEENT: Sclerae are anicteric. Oropharynx is clear. Mucous membranes are moist. NECK: Supple without lymphadenopathy. He has no jugular venous distention. LUNGS: Clear to auscultation bilaterally. HEART: Regular rate and rhythm with no murmurs, rubs or gallops. ABDOMEN: Soft, nontender, and nondistended with positive bowel sounds. No tenderness to palpation over the chest wall. EXTREMITIES: Warm. He has intact distal pulses. SKIN: Shows no rashes or lesions. NEUROLOGIC: Nonfocal. PSYCHIATRIC: He was alert and oriented and appropriate. DATA: EKG, sinus rhythm, left axis deviation, anteroseptal infarct and no dynamic ST changes. Chest x-ray showed no acute cardiopulmonary process. CTA showed no acute intrathoracic process. LABORATORY DATA: Hemoglobin of 13.3 and platelets of 304. Sodium 141, potassium 4.0, BUN 16, and creatinine 0.9. A1c was 6.9. LFTs were within normal limits. CK-MB was negative. Troponins have been negative x3. Dobutamine stress echo showed normal resting LV function with mid apical anteroseptal, septal akinesis. With dobutamine stress, appropriate augmentation of LV function including increase in function of all LV wall except for primary fixed anteroseptal, septal akinetic segment. IMPRESSION AND PLAN: 1. Chest pain. 2. Coronary artery disease status post 2-vessel CABG 3 years ago. 3. Type 2 diabetes. 4. Hypertension. 5. Ongoing tobacco abuse. 6. Chronic obstructive pulmonary disease. Mr. Downing is here with increasing frequency of typical chest pain. He has had persistent pain overnight, but no evidence of active ischemia by enzymes or EKG. Dobutamine stress echo was obtained this morning, which showed normal augmentation of LV function and no dobutamine-induced regional wall motion abnormalities. Of note, the patient did have initial chest pain with the beginning of dobutamine, which seemed resolved with increasing doses. Low suspicion for acute coronary syndrome or high risk coronary artery disease. Potential for some pain from small vessel disease and recommend trial of long acting nitrates. Would continue on current cardiac regimen going forward with nitrate as discussed above. From a cardiac standpoint, okay to return to this facility when medically appropriate. Thank you for allowing us to participate in the care of this patient. RASHID
--- NOTE | 2016-12-17 13:08 | Discharge Summary ---
Discharge Summary Date of Service Dec 17, 2016. (Fifi Amin PA-C) Discharge Summary Admission Date: Dec 16, 2016 at 16:51 Discharge Date: Dec 17, 2016 Discharge Disposition: Home ([facility]) Principal Diagnosis: Chest pain Immunizations: Have You Had Influenza Vaccine: Yes History of Tetanus Vaccine?: Yes History of Pneumococcal: Yes History of Hepatitis B Vaccine: Yes Consultations: Cardiology--Dr. Mckinley (Fifi Amin, MARGARET) Medication Reconciliation New Medications: Isosorbide Mononitrate (Isosorbide Mononitrate ER) 30 Mg Tabcr 30 MG PO DAILY for 30 Days, #30 TABS Continued Medications: Albuterol Hfa (Ventolin Hfa) 200 Puffs/36980 Mcg Aers 2 PUFFS INH QID PRN for SOB/Wheezing, #1 INHALER Aspirin (Aspirin Ec) 81 Mg Tab 81 MG PO DAILY Baclofen (Baclofen) 20 Mg Tab 20 MG PO TID Ciclesonide (Alvesco) 160 Mcg/Act Aer 1 PUFF INH BID Dorzolamide Hcl (Trusopt Oph) 2 % Daniella 1 DROPS OP BID, #10 ML 3 Refills Duloxetine Hcl (Cymbalta) 60 Mg Cap 60 MG PO DAILY, CAP Guaifenesin (Guaifenesin) 400 Mg Tab 400 MG PO TID Insulin Human NPH (Humulin N) 100 Units/Ml Susp 5 UNITS SC BID Ketorolac Tromethamine (Toradol) 10 Mg Tab 10 MG PO TID PRN for Pain, TAB Latanoprost (Xalatan 0.005% Oph Daniella) 0.005 % Daniella 1 DROPS OP DAILY, #2.5 ML 3 Refills Lisinopril (Prinivil) 5 Mg Tab 5 MG PO DAILY, TAB Lovastatin (Mevacor) 40 Mg Tab 40 MG PO HS, TAB Metoprolol Tartrate (Lopressor) (Lopressor) 50 Mg Tab 50 MG PO BID, TAB Miconazole Nitrate Vaginal (Miconazole) 2 % Cre 1 APPLN TOP BID Mirtazapine Soltab (Remeron Soltab) 15 Mg Soltab 15 MG PO HS, TAB Nitroglycerin (Nitrostat) 0.4 Mg Tab 0.4 MG UT PRN, BTL Nystatin (Topical) (Nystatin) 100,000 Unit/Gm Oin 1 APPLN TOP BID for 5 Days, #15 GM Salmeterol Xinafoate (Serevent Diskus) 28 Puffs/1400 Mcg Aerp 1 PUFF INH BID Timolol Maleate (Timolol 0.5% Oph Soln 15 Ml) 15 Ml Soln 1 DROP OPB QAM Discharge Exam Patient complains of 8/10 sharp pain in the left side of the chest towards lateral aspect. The patient states the pain has been constant all night and into the morning. He does complain of some intermittent sweats and palpitations. He complains of shortness of breath but states that this is chronic for him due to his COPD, and he is not sure if the chest pain is contributing. He also notes a productive cough with white sputum. The patient complains of low back with radiculopathy, which has been chronic. He also complains of lower abdominal pain which he states has been going on for a while and is being worked up by his PCP. The patient denies fevers, chills, claudication, wheezing, nausea, vomiting, dysuria, hematuria, urinary retention , paralysis, weakness. Review of Systems: Constitutional: + sweats, No fever, No chills Eyes: No worsening of vision, No eye pain, No diplopia ENT: No hearing loss, No sore throat, No trouble swallowing Respiratory: + cough, + sputum (white), + shortness of breath (chronic), No wheezing Cardiovascular: + chest pain (8/10 sharp left lateral chest pain), + palpitations (intermittent), No claudication Abdomen: No pain, No nausea, No vomiting Musculoskeletal: + joint pain (chronic low back pain), No muscle pain, No swelling Genitourinary - Male: No hematuria, No dysuria, No urinary retention Neurologic: + numbness/tingling (chronic radiculopathy), No paralysis, No weakness Integumentary: No rash, No itch, No color change Physical Exam: General Appearance: WD/WN, no apparent distress Eyes: normal inspection, PERRL, EOMI ENT: normal ENT inspection, hearing grossly normal, pharynx normal Neck: supple, no JVD, trachea midline Respiratory/Chest: lungs clear, normal breath sounds, no respiratory distress Cardiovascular: regular rate, rhythm, no gallop, no murmur Abdomen / GI: normal bowel sounds, soft, + tenderness (mild lower abdominal TTP) Extremities: normal inspection, no calf tenderness, no pedal edema Neurologic/Psychiatric: alert, normal mood/affect, oriented x 3 Skin: normal color, warm/dry, no rash (Fifi Amin ., HENRYC) Hospital Course 51 y/o male with history of CAD, DE x 5, CABG x 2, HTN, COPD, h/o latent TB, DM II, chronic back pain, glaucoma and depression who presents from [facility] to the ED on 12/16 with chest pain. Chest pain, CAD, h/o DE and CABG, HTN--stable -Admit to telemetry for observation. No acute events overnight. Pt in sinus rhythm with HR in 60s-80s -Cardiac enzymes negative x 3 -Stress echo negative, no stress induced ischemia or wall motion abnormalities -EKG q am and prn chest pain. Repeat EKGs do not show ischemic changes. -Cardiology consulted, appreciate recs: recommend long-acting nitrate in addition to current regimen. Clear for discharge from cardiac standpoint -Continue ASA, lisinopril 5 mg PO qd, Lopressor 50 mg PO BID, and lovastatin 40 mg PO qd -Add Imdur 30 mg PO qd for angina COPD -Continue Alvesco 1 puff inh BID, Serevent 1 puff inh BID and albuterol inhaler prn DM II -Continue Humulin N 5 units SC BID -Insulin sliding scale -Check BSGs q ac and qhs -HgbA1c was 6.9 on 12/16 Chronic back pain -Continue baclofen 20 mg PO TID and Toradol 10 mg PO TID prn Glaucoma -Continue Trusopt, Xalatan and timolol drops Depression -Continue Cymbalta 60 mg PO qd and Remeron 15 mg PO qhs DVT prophylaxis -Heparin 5000 units SC q8h -SCDs Code Status -Level I, FULL RESUSCITATION STATUS Total Time Spent: Greater than 30 minutes This includes examination of the patient, discharge planning, medication reconciliation, and communication with other providers. (Fifi Amin ., KIM-C) I agree with PA assessment and plan and have seen and examined pt myself Resting comfortably in bed VSS Labs reviewed Chest pain resolved Trops x 3 sets neg Stress ECHO unremarkable [facility] (Rehan Diego D.O.) Discharge Instructions Please refer to the electronic Patient Visit Report (Discharge Instructions) for additional information. (Fifi Amin ., PA-C) Additional Copies To [facility]
[2016-12-17] MEDS ORDERED: LOVASTATIN 20 MG TAB PO SCH (17:00)
--- NOTE | 2016-12-19 13:10 | DOBUTAMINE ECHO ---
*NOTICE TO RECEIVING [employer] This information is strictly Confidential and protected under [place] law. [place] law prohibits you from making any further disclosure of this information unless further disclosure is expressly permitted by the written consent of the person to whom it pertains or is authorized by law. A general authorization for the release of medical or other information is not sufficient for this purpose. Hospital accepts no responsibility if the information is made available to any other person, INCLUDING THE PATIENT. Interpretation Summary * Name: JAZ PATTON [id number] Study Date: 12/17/2016 09:38 AM BP: 136/75 mmHg * Patient Location: C.2T\S\S234\S\1 HR: 53 * : 1965 (M/d/yyyy) Gender: Male Height: 67 in * Age: 51 yrs Ethnicity: CA Weight: 184 lb * Ordering Physician: Abilio Mckinley * Referring Physician: Radha BELL * Performed By: Raquel Andino RDCS * * Reason For Study: Chest pain * BSA: 2.0 m2 * -- Conclusions -- * 1. Negative dobutamine stress echo for ischemia at 90% MPHR. * 2. Negative dobutamine stress ecg for ischemia. * 3. Resting mid anteroseptum, apical septum akinesis without augmentation with dobutamine suggestive of prior infarct. * 4. Normal LV size. Rest LVEF 55-60%. * 5. Normal RV size and function. * 6. No significant valvular pathology. Procedure Details * DOBUTAMINE ECHO, CPT#[id number] * ECHO DOPPLER, CPT #[id number] * ECHO COLOR FLOW, CPT #[id number] Left Ventricle * The left ventricle is grossly normal size. * There is normal left ventricular wall thickness. * Ejection Fraction = 55-60%. * Akinetic mid anteroseptum, apical septum at rest and with low and high levels of dobutamine. Normal augmentation of all other ronquillo stress. * The left ventricular ejection fraction increases normally with stress. The left ventricular end-systolic cavity size reduces post-stress (normal response). The left ventricular wall motion with stress is normal. Right Ventricle * The right ventricle is grossly normal size. * The right ventricular systolic function is normal as assessed by tricuspid annular plane systolic excursion (TAPSE) (normal >1.5 cm). Atria * Borderline left atrial enlargement. * Right atrial size is normal. Mitral Valve * The mitral valve is grossly normal. * There is no mitral valve stenosis. * There is trace mitral regurgitation. Tricuspid Valve * The tricuspid valve is not well visualized, but is grossly normal. * There is trace tricuspid regurgitation. Aortic Valve * The aortic valve opens well. * The aortic valve is trileaflet. * No hemodynamically significant valvular aortic stenosis. * Trace aortic regurgitation. Pulmonic Valve * The pulmonary valve is inadequately visualized, but the Doppler data is adequate for interpretation. * Trace pulmonic valvular regurgitation. Great Vessels * The aortic root and proximal ascending aorta are normal sized. Pericardium * There is no pericardial effusion. Stress Parameters * Normal baseline electrocardiogram. * old anteroseptal infarct. * Stress ECG: No ST changes. No arrhythmias. * Arrhythmia induced during stress: occasional PVC's. * The stress portion of this study was personally supervised by the undersigned interpreting physician. * Rest heart rate was '53' BPM. * Rest blood pressure was '136/75' * Maximum heart rate achieved was 153 bpm. * Maximum heart rate was 90 % of maximum age-predicted heart rate. * Maximum blood pressure was '165/77' * Maximum Dobutamine infusion rate was '40' mcg/kg/min. * A total of 1.5 mg of intravenous Atropine was used to supplement Dobutamine for heart rate response. * Dobutamine infusion was terminated due to achieving target heart rate * A total of 10 mg of IV Metoprolol was administered to reverse Dobutamine-induced tachycardia. MMode 2D Measurements and Calculations IVSd 0.89 cm LVIDd 4.5 cm LVIDs 3.2 cm LVPWd 0.81 cm IVS/LVPW 1.1 FS 27.9 % EDV(Teich) 91.6 ml ESV(Teich) 41.9 ml EF(Teich) 54.3 % EDV(cubed) 90.1 ml ESV(cubed) 33.7 ml EF(cubed) 62.6 % LV mass(C)d 122.2 grams LV mass(C)dI 62.6 grams/m\S\2 SV(Teich) 49.7 ml SI(Teich) 25.5 ml/m\S\2 SV(cubed) 56.4 ml SI(cubed) 28.9 ml/m\S\2 Ao root diam 3.3 cm Ao root area 8.4 cm\S\2 ACS 1.5 cm LA dimension 3.5 cm asc Aorta Diam 3.2 cm LA/Ao 1.1 LVAd ap4 28.1 cm\S\2 LVLd ap4 7.5 cm EDV(MOD-sp4) 83.9 ml EDV(sp4-el) 89.1 ml LVAs ap4 18.0 cm\S\2 LVLs ap4 6.7 cm ESV(MOD-sp4) 38.5 ml ESV(sp4-el) 40.7 ml EF(MOD-sp4) 54.1 % EF(sp4-el) 54.3 % LVAd ap2 21.7 cm\S\2 LVLd ap2 7.1 cm EDV(MOD-sp2) 56.5 ml EDV(sp2-el) 56.9 ml LVAs ap2 13.2 cm\S\2 LVLs ap2 6.5 cm ESV(MOD-sp2) 25.2 ml ESV(sp2-el) 22.8 ml EF(MOD-sp2) 55.5 % EF(sp2-el) 59.9 % LVLd %diff -6.41 % EDV(MOD-bp) 71.3 ml LVLs %diff -3.28 % ESV(MOD-bp) 30.6 ml EF(MOD-bp) 57.0 % SV(MOD-sp4) 45.4 ml SI(MOD-sp4) 23.3 ml/m\S\2 SV(MOD-sp2) 31.4 ml SI(MOD-sp2) 16.1 ml/m\S\2 SV(MOD-bp) 40.7 ml SI(MOD-bp) 20.8 ml/m\S\2 SV(sp4-el) 48.4 ml SI(sp4-el) 24.8 ml/m\S\2 SV(sp2-el) 34.1 ml SI(sp2-el) 17.4 ml/m\S\2 Doppler Measurements and Calculations MV E max indu 86.3 cm/sec MV A max indu 57.1 cm/sec MV E/A 1.5 MV dec time 0.15 sec Ao V2 max 163.7 cm/sec Ao max PG 10.7 mmHg Ao max PG (full) 4.8 mmHg LV V1 max PG 5.9 mmHg LV V1 max 121.3 cm/sec PA V2 max 88.9 cm/sec PA max PG 3.2 mmHg PA acc slope 556.0 cm/sec\S\2 PA acc time 0.14 sec TR max indu 229.0 cm/sec PA pr(Accel) 14.4 mmHg
== END 2016-12-17 13:50 ==
LOC: C.EDA 13:18 → C.2T 16:51 → ENRESERV 17:21
PROVIDERS: ADMIT Internal Medicine; ATTEND Hospitalist
DX: R07.2 Precordial pain (principal); I25.2 Old myocardial infarction; J44.9 Chronic obstructive pulmonary disease, unspecified; I25.10 Atherosclerotic heart disease of native coronary artery without angina pectoris; K21.9 Gastro-esophageal reflux disease without esophagitis; H40.9 Unspecified glaucoma; I10 Essential (primary) hypertension; Z79.82 Long term (current) use of aspirin; Z86.11 Personal history of tuberculosis; F17.200 Nicotine dependence, unspecified, uncomplicated; Z98.1 Arthrodesis status; Z95.5 Presence of coronary angioplasty implant and graft; E11.9 Type 2 diabetes mellitus without complications; Z79.4 Long term (current) use of insulin; M54.5 Low back pain; Z82.49 Family history of ischemic heart disease and other diseases of the circulatory system; F32.9 Major depressive disorder, single episode, unspecified

== ENCOUNTER 2017-05-03 11:07 | Inpatient (IN) | payer OTHER ==
[~2017-05-03] VITALS: Ht 170.2 cm; Wt 90.6 kg
[2017-05-03] VITALS (7 sets, daily range): BP systolic 114–160; BP diastolic 68–98; PULSE 102–128; TEMP 36.6–37; O2SAT 92–97; Ht 170.2 cm; Wt 90.6 kg
[~2017-05-03 11:07] MED LIST changes: -ALBUAER19 INH; -ASPI1TAB83 PO; -DIPH50TA10 PO; +DORZ2SOL17 OP; +IMDSR/30 PO; +INSHNI SC; -INSUINJ4 SQ; -ISON300T4 PO; -LATA0.009 OPB; +LATA0.5S OP; +LISI5TAB PO; -LOVA20TA4 PO; +LOVA40TA4 PO; -MELO15TA4 PO; +METO50TA16 PO; -METO50TA17 PO; +MIRT15TA2 PO; -MTR/600 PO; +NTRGSL/4 UT; +NYST80OI TOP; -NYSTPOW2 TOP; -PYRI50TA77 PO; -SERT-234 PO; +SRVDIN50 INH; +TMPOPS15 OPB; +VNTHFA/IN INH
[2017-05-03] MEDS ORDERED: ALBUTEROL 0.083% NEBU SOLN 3 ML VIAL INH ONE (11:14)
[2017-05-03] MEDS ORDERED: ALBUT/IPRATROP 3MG/0.5MG NEB 3 ML VIAL ONE (11:14)
[2017-05-03] MEDS ORDERED: METHYLPREDNISOLONE 125 MG VIAL ONE (11:14)
[2017-05-03] MEDS ORDERED: OMEP20TA40 PO (11:50)
[2017-05-03] MEDS ORDERED: MICO2CRE48 TOP (11:50)
[2017-05-03] MEDS ORDERED: TAMS0.4C38 PO (11:50)
[2017-05-03] MEDS ORDERED: NORT50CA PO (11:50)
[2017-05-03] MEDS ORDERED: LEVALBUTEROL 1.25MG/3ML NEB INH STA ×2 (11:58→13:53)
[2017-05-03 11:59] LABS: BASO % 0.7 %; BASO ABS # 0.08 K/uL (0-0.2); EOS % 1.8 %; EOS ABS # 0.19 K/uL (0-0.5); HEMATOCRIT 43.2 % (42-52); IG# 0.03 K/uL (0.00-0.02); LYMPH ABS # 1.84 K/uL (1.2-3.4); MEAN CELL VOLUME 91.7 fL (80-100); MEAN CORPUSCULAR HEMOGLOBIN 31.8 pg (25-34); MEAN CORPUSCULAR HGB CONC 34.7 g/dl (32-36); MEAN PLATELET VOLUME 9.2 fL (7.4-10.4); MONO % 9.2 %; NEUT ABS # 7.71 K/uL (1.4-6.5); PLATELET COUNT 294 K/uL (130-400); RED CELL DISTRIBUTION WIDTH CV 13.4 % (11.5-14.5); RED CELL DISTRIBUTION WIDTH SD 44.7 fL (36.4-46.3); WHITE BLOOD COUNT 10.85 K/uL (4.8-10.8)
--- NOTE | 2017-05-03 12:09 | DIAGNOSTIC IMAGING REPORT ---
CHEST ONE VIEW PORTABLE HISTORY: EVALUATE WEAKNESS COMPARISON: Chest 12/16/2016. FINDINGS: A few linear scarlike densities within the left lower lung zone, unchanged. The lungs are otherwise clear. The heart is normal in size. There are post anatomy changes. Cervical spinal fusion hardware is again noted. No pleural effusions. No pneumothorax. IMPRESSION: No significant change compared to the prior study. No acute process. Electronically signed by: Lavell Ferguson M.D. 05/03/2017 12:08 PM Dictated Date/Time: 05/03/2017 12:07 PM
[2017-05-03 12:11] LABS: PTT PATIENT 27.8 SECONDS (21.0-31.0)
[2017-05-03 12:16] LABS: ALBUMIN 3.8 gm/dl (3.4-5.0); ALT/SGPT 18 U/L (12-78); BLOOD UREA NITROGEN 12 mg/dl (7-18); CALCIUM 8.8 mg/dl (8.5-10.1); CARBON DIOXIDE 24 mmol/L (21-32); CREATININE 1.32 mg/dl (0.60-1.40); GLUCOSE 140 mg/dl (70-99); LIPASE 61 U/L (73-393); POTASSIUM 3.6 mmol/L (3.5-5.1); SODIUM 138 mmol/L (136-145)
[2017-05-03 12:27] LABS: ALKALINE PHOSPHATASE 118 U/L (45-117); AST/SGOT 15 U/L (15-37); TOTAL PROTEIN 7.6 gm/dl (6.4-8.2)
[2017-05-03] MEDS ORDERED: SODIUM CHLORIDE 0.9% 1000ML 1,000 ML IV STA (12:47)
--- NOTE | 2017-05-03 12:53 | EMERGENCY ROOM VISIT NOTE ---
History Report prepared by Aminah: Jessica Enriquez Under the Supervision of: Dr. Cam Pritchard M.D. First contact with patient: 11:25 Chief Complaint: FLU LIKE SX Stated Complaint: SHORTNESS OF BREATH History of Present Illness The patient is a 52 year old male who presents to the Emergency Room with complaints of persistent SOB starting yesterday. The patient presents to the ED by EMS from [facility]. He received 125 Solu-Medrol, 1 DuoNeb, and 1 albuterol neb in route to some relief. His oxygen is 89 on room air. The patient has had SOB which started yesterday. He is coughing up mucous and wheezing. He has tried using his inhaler to no significant relief. He is also having chest pain. He reports sharp left abdominal pain and left sided back pain which also started yesterday. He has been having pain with urination. He has a headache, fever, and chills. He has a history of emphysema, COPD, and CABG. Pt denies LOC , diaphoresis, visual changes, neck pain, nausea, vomiting, melena, hematochezia , numbness, weakness, lymphadenopathy, rash, or other complaints. Source of History: patient Onset: yesterday Position: other (global) Quality: other (SOB) Timing: other (persistent) Associated Symptoms: + fevers, + chills, + headache, + cough, + chest pain, + abdominal pain, + back pain, + urinary symptoms Review of Systems See HPI for pertinent positives and negatives. A total of ten systems were reviewed and were otherwise negative. 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 (12) Lumbar back pain (13) Lumbar radicular pain (14) Tobacco abuse Surgical Problems: (1) H/O cervical spine surgery (2) S/P CABG x 2 Family History Cardiac disorder in father FHx: liver cancer Heart disease in brother Social History Smoking Status: Former Smoker Drug Use: none Marital Status: single Housing Status: other Occupation Status: other Current/Historical Medications Scheduled Insulin Human NPH (Humulin N), 5 UNITS SC BID Isosorbide Mononitrate (Isosorbide Mononitrate ER), 30 MG PO DAILY Latanoprost (Xalatan 0.005% Oph Daniella), 1 DROPS OP DAILY Lisinopril (Prinivil), 5 MG PO DAILY Lovastatin (Mevacor), 40 MG PO HS Metoprolol Tartrate (Lopressor) (Lopressor), 50 MG PO BID Miconazole Nitrate Vaginal (Miconazole), 1 APPLN TOP BID Mirtazapine Soltab (Remeron Soltab), 15 MG PO HS Nitroglycerin (Nitrostat), 0.4 MG UT PRN Nortriptyline (Pamelor), 50 MG PO HS Nystatin (Topical) (Nystatin), 1 APPLN TOP BID Omeprazole (Cvs Omeprazole), 20 MG PO DAILY Tamsulosin Hcl (Flomax), 0.4 MG PO HS Timolol Maleate (Timolol 0.5% Oph Soln 15 Ml), 1 DROP OPB QAM Scheduled PRN Albuterol Hfa (Ventolin Hfa), 2 PUFFS INH QID PRN for SOB/Wheezing Allergies Coded Allergies: No Known Allergies (Unverified , 05/03/17) Physical Exam Vital Signs Date Time Temp Pulse Resp B/P (MAP) Pulse Ox O2 Delivery O2 Flow Rate FiO2 05/03/17 14:44 132 26 127/76 96 Oxymask 5.0 05/03/17 14:03 124 18 97 Mask 5.0 05/03/17 13:41 120 05/03/17 13:33 122 24 119/68 97 Oxymask 4.0 05/03/17 12:30 133 26 125/82 95 Oxymask 6.0 05/03/17 12:11 128 22 94 Mask 5.0 05/03/17 11:43 94 Oxymask 4.0 05/03/17 11:26 94 Oxymask 4.0 05/03/17 11:21 37.2 134 27 150/83 90 Room Air 05/03/17 11:16 145 Physical Exam GENERAL: Awake, alert, well-appearing, in no distress HENT: Normocephalic, atraumatic. Oropharynx unremarkable. EYES: Normal conjunctiva. Sclera non-icteric. NECK: Supple. No nuchal rigidity. FROM. No JVD. RESPIRATORY: Expiratory wheezes bilaterally. CARDIAC: Tachycardic rate, normal rhythm. Extremities warm and well perfused. Pulses equal. ABDOMEN: Soft, non-distended. No tenderness to palpation. No rebound or guarding. No masses. RECTAL: Deferred. MUSCULOSKELETAL: Chest examination reveals no tenderness. The back is symmetrical on inspection without obvious abnormality. There is no CVA tenderness to palpation. No joint edema. LOWER EXTREMITIES: Calves are equal size bilaterally and non-tender. No edema. No discoloration. NEURO: Normal sensorium. No sensory or motor deficits noted. SKIN: No rash or jaundice noted. Medical Decision & Procedures ER Provider Diagnostic Interpretation: Xray results as stated below per my and radiologist interpretation. Radiology results as stated below per my review and radiologist interpretation: CHEST ONE VIEW PORTABLE HISTORY: EVALUATE WEAKNESS COMPARISON: Chest 12/16/2016. FINDINGS: A few linear scarlike densities within the left lower lung zone, unchanged. The lungs are otherwise clear. The heart is normal in size. There are post anatomy changes. Cervical spinal fusion hardware is again noted. No pleural effusions. No pneumothorax. IMPRESSION: No significant change compared to the prior study. No acute process. Electronically signed by: Lavell Ferguson M.D. 05/03/2017 12:08 PM Dictated Date/Time: 05/03/2017 12:07 PM (CHEST FOR PE) ANGIO WITH CT DOSE: 545.58 mGycm HISTORY: 52 years-old Male presents with acute tachycardia and shortness of breath TECHNIQUE: Multiple CTA images of the chest were obtained after the intravenous administration of 95 ml Optiray 320. Coronal and sagittal MIPS were obtained from the axial data set and were submitted for review. A dose lowering technique was utilized adhering to the principles of ALARA. COMPARISON: Chest radiograph 05/03/2017, CTA 12/16/2016 FINDINGS: CTA: The heart is mildly enlarged. Prior median sternotomy and CABG. [place] coronary arterial disease. Thoracic aorta is normal in course and caliber without aneurysm or dissection. Imaged great vessels appear to be patent. The pulmonary arterial tree is opacified to level of the segmental branches. The distal segmental and subsegmental branches are not well-seen secondary to contrast opacification and respiratory motion. No focal filling defects identified to suggest pulmonary thromboembolic disease. CT CHEST: Mildly heterogeneous thyroid without dominant nodule identified. Mildly enlarged subcarinal lymph node measures 1.6 x 1.0 cm, nonspecific. No additional enlarged lymph nodes identified. There is no pneumothorax or pleural effusion. Mild dependent subsegmental bibasilar atelectasis. Linear subsegmental opacity of the inferior segment lingula suggests atelectasis or scarring. No lobar airspace consolidation to suggest pneumonia. Central airways are patent. There is mild mucous plugging noted within bronchi of the lower lobes with mild bronchial wall thickening. No acute abnormality of the imaged upper abdomen. There is thickening of the left renal gland with a low attenuating 1.5 x 1.9 cm lesion suggesting an adenoma. Mild symmetric bilateral gynecomastia. Bones appear intact. Fusion hardware of the lower cervical spine. IMPRESSION: 1. No acute aortic pathology or evidence of pulmonary thromboembolic disease. 2. Mild cardiomegaly with prior median sternotomy and CABG. 3. Mild bilateral bronchial wall thickening suggests bronchitis with areas of mild mucous plugging. Minimal subsegmental bibasilar atelectasis without lobar airspace consolidation to suggest pneumonia. The above report was generated using voice recognition software. It may contain grammatical, syntax or spelling errors. Electronically signed by: Jose L Velez M.D. 05/03/2017 1:40 PM Dictated Date/Time: 05/03/2017 1:28 PM Laboratory Results 05/03/17 11:40 Red Blood Count 4.71, Mean Corpuscular Volume 91.7, Mean Corpuscular Hemoglobin 31.8, Mean Corpuscular Hemoglobin Concent 34.7, Mean Platelet Volume 9.2, Neutrophils (%) (Auto) 71.0, Lymphocytes (%) (Auto) 17.0, Monocytes (%) (Auto) 9.2, Eosinophils (%) (Auto) 1.8, Basophils (%) (Auto) 0.7, Neutrophils # (Auto) 7.71, Lymphocytes # (Auto) 1.84, Monocytes # (Auto) 1.00, Eosinophils # (Auto) 0.19, Basophils # (Auto) 0.08 05/03/17 11:40 Test 05/03/17 11:40 05/03/17 13:31 05/03/17 14:09 White Blood Count 10.85 K/uL (4.8-10.8) Red Blood Count 4.71 M/uL (4.7-6.1) Hemoglobin 15.0 g/dL (14.0-18.0) Hematocrit 43.2 % (42-52) Mean Corpuscular Volume 91.7 fL (80-100) Mean Corpuscular Hemoglobin 31.8 pg (25-34) Mean Corpuscular Hemoglobin Concent 34.7 g/dl (32-36) Platelet Count 294 K/uL (130-400) Mean Platelet Volume 9.2 fL (7.4-10.4) Neutrophils (%) (Auto) 71.0 % Lymphocytes (%) (Auto) 17.0 % Monocytes (%) (Auto) 9.2 % Eosinophils (%) (Auto) 1.8 % Basophils (%) (Auto) 0.7 % Neutrophils # (Auto) 7.71 K/uL (1.4-6.5) Lymphocytes # (Auto) 1.84 K/uL (1.2-3.4) Monocytes # (Auto) 1.00 K/uL (0.11-0.59) Eosinophils # (Auto) 0.19 K/uL (0-0.5) Basophils # (Auto) 0.08 K/uL (0-0.2) RDW Standard Deviation 44.7 fL (36.4-46.3) RDW Coefficient of Variation 13.4 % (11.5-14.5) Immature Granulocyte % (Auto) 0.3 % Immature Granulocyte # (Auto) 0.03 K/uL (0.00-0.02) Prothrombin Time 10.4 SECONDS (9.0-12.0) Prothromb Time International Ratio 1.0 (0.9-1.1) Activated Partial Thromboplast Time 27.8 SECONDS (21.0-31.0) Partial Thromboplastin Ratio 1.1 Anion Gap 11.0 mmol/L (3-11) Est Creatinine Clear Calc Drug Dose 69.7 ml/min Estimated GFR () 71.4 Estimated GFR (Non- 61.6 BUN/Creatinine Ratio 9.3 (10-20) Calcium Level 8.8 mg/dl (8.5-10.1) Magnesium Level 1.7 mg/dl (1.8-2.4) Total Bilirubin 0.4 mg/dl (0.2-1) Direct Bilirubin < 0.1 mg/dl (0-0.2) Aspartate Amino Transf (AST/SGOT) 15 U/L (15-37) Alanine Aminotransferase (ALT/SGPT) 18 U/L (12-78) Alkaline Phosphatase 118 U/L (45-117) Troponin I < 0.015 ng/ml (0-0.045) Total Protein 7.6 gm/dl (6.4-8.2) Albumin 3.8 gm/dl (3.4-5.0) Lipase 61 U/L (73-393) Thyroid Stimulating Hormone (TSH) 0.520 uIu/ml (0.300-4.500) Urine Color YELLOW Urine Appearance CLEAR (CLEAR) Urine pH 6.0 (4.5-7.5) Urine Specific [place] 1.023 (1.000-1.030) Urine Protein NEG (NEG) Urine Glucose (UA) NEG (NEG) Urine Ketones 1+ (NEG) Urine Occult Blood NEG (NEG) Urine Nitrite NEG (NEG) Urine Bilirubin NEG (NEG) Urine Urobilinogen NEG (NEG) Urine Leukocyte Esterase NEG (NEG) Influenza Type A Antigen POS for Influ A (NEG) Influenza Type B Antigen Neg for Influ B (NEG) Laboratory results reviewed by me Medications Administered Medications (Trade) Dose Ordered Sig/Los Route Start Time Stop Time Status Last Admin Dose Admin Levalbuterol (Xopenex 1.25MG/ 3ML Neb) 1.25 mg NOW STAT INH 05/03/17 11:58 05/03/17 12:00 DC 05/03/17 12:11 1.25 MG Sodium Chloride 1,000 ml @ 999 mls/hr Q1H1M STAT IV 05/03/17 12:47 05/03/17 13:47 DC 05/03/17 12:54 999 MLS/HR Levalbuterol (Xopenex 1.25MG/ 3ML Neb) 1.25 mg NOW STAT INH 05/03/17 13:53 05/03/17 13:54 DC 05/03/17 14:03 1.25 MG ECG Indication: SOB/dyspnea Rate (beats per minute): 136 Rhythm: sinus tachycardia Findings: no acute ischemic change, no ectopy Change: Patient's electrocardiogram was interpreted by me. ED Course 1155: The patient was evaluated in room C9. A complete history and physical exam was performed. 1158: Levalbuterol 1.25 mg INH. 1247: NSS 1000 ml @ 999 mls/hr IV. 1353: Levalbuterol 1.25 mg INH. 1420: Upon reexamination, the patient was stable. He is getting his second Xopenex treatment. I discussed the test results and treatment plan with him. The patient will be evaluated for further management. 1425: Repeat EKG shows sinus tachycardia, rate 128, nonspecific ST abnormality, no ectopy as interpreted by me. Indication was recurrent chest pain. 1429: I discussed the patient's case with TIEN Ramirez hospitalist. The patient will be evaluated for further treatment and disposition. Medical Decision Prior records/ancillary studies reviewed. Triage Nursing notes reviewed and agree them. The patient's history was concerning for shortness of breath. Differential diagnosis: Etiologies such as pneumonia, COPD, reactive airway disease, CHF, cardiac ischemia, pulmonary embolism, pneumothorax, musculoskeletal, infections, gastrointestinal, as well as others were entertained. Physical examination: As above. Tachycardia. Wheezing. ER treatment provided: Normal saline hydration Xopenex neb treatment 2 On reassessment the patient felt mildly better. Oral Tamiflu Diagnostic interpretation by me: The electrocardiogram was negative for pathologic change. Tachycardia noted. The labs revealed mild leukocytosis on CBC. Chemistry panel unremarkable. His cardiac markers are negative. Influenza screen positive. Imaging studies: Chest x-ray and CT scan as above. The patient has mild hypoxia and wheezing. He has COPD and has unfortunately contract influenza. Consultation: A consultation was placed with the hospitalist. The case was discussed and diagnostics were reviewed. The patient was evaluated in the ER for further treatment. Medication Reconcilliation Current Medication List: was personally reviewed by me Blood Pressure Screening Patient's blood pressure: Elevated blood pressure Referred to hospitalist. Consults Time Called: 142 Consulting Physician: TIEN Ramirez hospitalist Returned Call: [phone] Discussed the patient's case. The patient will be evaluated for further treatment and disposition. Impression Primary Impression: SOB (shortness of breath) Additional Impressions: Hypoxia COPD (chronic obstructive pulmonary disease) Left sided chest pain Scribe Attestation The scribe's documentation has been prepared under my direction and personally reviewed by me in its entirety. I confirm that the note above accurately reflects all work, treatment, procedures, and medical decision making performed by me. Departure Information Dispostion Being Evaluated By Hospitalist Referrals Radha BELL (PCP) Patient Instructions My [facility] Problem Qualifiers
[2017-05-03] MEDS ORDERED: OPTIRAY 320 IV PRN (13:00)
--- NOTE | 2017-05-03 13:42 | DIAGNOSTIC IMAGING REPORT ---
(CHEST FOR PE) ANGIO WITH CT DOSE: 545.58 mGycm HISTORY: 52 years-old Male presents with acute tachycardia and shortness of breath TECHNIQUE: Multiple CTA images of the chest were obtained after the intravenous administration of 95 ml Optiray 320. Coronal and sagittal MIPS were obtained from the axial data set and were submitted for review. A dose lowering technique was utilized adhering to the principles of ALARA. COMPARISON: Chest radiograph 05/03/2017, CTA 12/16/2016 FINDINGS: CTA: The heart is mildly enlarged. Prior median sternotomy and CABG. [place] coronary arterial disease. Thoracic aorta is normal in course and caliber without aneurysm or dissection. Imaged great vessels appear to be patent. The pulmonary arterial tree is opacified to level of the segmental branches. The distal segmental and subsegmental branches are not well-seen secondary to contrast opacification and respiratory motion. No focal filling defects identified to suggest pulmonary thromboembolic disease. CT CHEST: Mildly heterogeneous thyroid without dominant nodule identified. Mildly enlarged subcarinal lymph node measures 1.6 x 1.0 cm, nonspecific. No additional enlarged lymph nodes identified. There is no pneumothorax or pleural effusion. Mild dependent subsegmental bibasilar atelectasis. Linear subsegmental opacity of the inferior segment lingula suggests atelectasis or scarring. No lobar airspace consolidation to suggest pneumonia. Central airways are patent. There is mild mucous plugging noted within bronchi of the lower lobes with mild bronchial wall thickening. No acute abnormality of the imaged upper abdomen. There is thickening of the left renal gland with a low attenuating 1.5 x 1.9 cm lesion suggesting an adenoma. Mild symmetric bilateral gynecomastia. Bones appear intact. Fusion hardware of the lower cervical spine. IMPRESSION: 1. No acute aortic pathology or evidence of pulmonary thromboembolic disease. 2. Mild cardiomegaly with prior median sternotomy and CABG. 3. Mild bilateral bronchial wall thickening suggests bronchitis with areas of mild mucous plugging. Minimal subsegmental bibasilar atelectasis without lobar airspace consolidation to suggest pneumonia. The above report was generated using voice recognition software. It may contain grammatical, syntax or spelling errors. Electronically signed by: Jose L Velez M.D. 05/03/2017 1:40 PM Dictated Date/Time: 05/03/2017 1:28 PM
[2017-05-03 15:11] LABS: INFLUENZA B ANTIGEN Neg for Influ B (NEG)
[2017-05-03] MEDS ORDERED: OSELTAMIVIR PHOSPHATE 75 MG CAP PO STA (15:18)
[2017-05-03] MEDS ORDERED: METHYLPREDNISOLONE 125 MG VIAL IV STA (15:42)
[2017-05-03] MEDS ORDERED: NITROGLYCERIN 0.4 MG SL PER TAB CHARGE UT SCH (15:45)
[2017-05-03] MEDS ORDERED: GLUCOSE 40% GEL 15 GM TUBE PO PRN (15:45)
[2017-05-03] MEDS ORDERED: MAGNESIUM HYDROXIDE SUSP 30 ML UDC PO PRN (15:45)
[2017-05-03] MEDS ORDERED: ONDANSETRON INJ 2 MG/ML 2 ML VIAL IV PRN (15:45)
[2017-05-03] MEDS ORDERED: NITROGLYCERIN 0.4 MG SL PER TAB CHARGE SL PRN (15:45)
[2017-05-03] MEDS ORDERED: GLUCOSE 10 TABS/TUBE PO PRN (15:45)
[2017-05-03] MEDS ORDERED: ALBUTEROL HFA 8 GM INHALER INH PRN (15:45)
[2017-05-03] MEDS ORDERED: ACETAMINOPHEN 325 MG TAB PO PRN (15:45)
[2017-05-03] MEDS ORDERED: GLUCAGON FOR INJ 1 MG VIAL SQ PRN (15:45)
[2017-05-03] MEDS ORDERED: DEXTROSE 50% 50 ML SYR IV PRN (15:45)
--- NOTE | 2017-05-03 16:02 | History and Physical ---
History & Physical Date & Time of Service: May 03, 2017 at 15:51 Chief Complaint: Shortness Of Breath Primary Care Physician: Radha BELL History of Present Illness Source: patient 52 y/o M c/o SOB and wheezing. Pt states that this started about 3 days ago and got worse last night. He was using his rescue inhalers and was given multiple neb tx at the [facility] without any help, so he was brought to the ED today for further evaluation. Pt states he has had a cough, lightheaded, congested, headache. He has not been eating much due to a sharp pain in in the L side of his abd after he eats. No n/v. He has had loose stools. He has been getting L sided chest pains at times. He has been wheezing a lot with this. Pt was given xopenex and O2 in the ED and he does feel a bit improved. "I just can't get this out of my lungs." Pt denies fever, LE pain or swelling. Past Medical/Surgical History Medical Problems: (1) Asthma Status: Chronic (2) COPD (chronic obstructive pulmonary disease) Status: Chronic (3) Coronary artery disease Status: Chronic (4) Emphysema lung Status: Chronic (5) Glaucoma Status: Chronic (6) Hypertension Status: Chronic Family History Family history was reviewed; no changes noted. Social History Smoking Status: Former Smoker (quit x3 days) Alcohol Use: none Drug Use: none Marital Status: single Housing status: other Occupational Status: other Immunizations History of Influenza Vaccine: Yes History of Tetanus Vaccine?: Yes History of Pneumococcal: Yes History of Hepatitis B Vaccine: Yes Multi-Drug Resistant Organisms History of MDRO: No Allergies Coded Allergies: No Known Allergies (Unverified , 05/03/17) Home Medications Scheduled Insulin Human NPH (Humulin N), 5 UNITS SC BID Isosorbide Mononitrate (Isosorbide Mononitrate ER), 30 MG PO DAILY Latanoprost (Xalatan 0.005% Oph Daniella), 1 DROPS OP DAILY Lisinopril (Prinivil), 5 MG PO DAILY Lovastatin (Mevacor), 40 MG PO HS Metoprolol Tartrate (Lopressor) (Lopressor), 50 MG PO BID Miconazole Nitrate Vaginal (Miconazole), 1 APPLN TOP BID Mirtazapine Soltab (Remeron Soltab), 15 MG PO HS Nitroglycerin (Nitrostat), 0.4 MG UT PRN Nortriptyline (Pamelor), 50 MG PO HS Nystatin (Topical) (Nystatin), 1 APPLN TOP BID Omeprazole (Cvs Omeprazole), 20 MG PO DAILY Tamsulosin Hcl (Flomax), 0.4 MG PO HS Timolol Maleate (Timolol 0.5% Oph Soln 15 Ml), 1 DROP OPB QAM Scheduled PRN Albuterol Hfa (Ventolin Hfa), 2 PUFFS INH QID PRN for SOB/Wheezing Review of Systems Pertinent positives and negatives reviewed in HPI--all others negative Physical Exam Vital Signs Date Time Temp Pulse Resp B/P (MAP) Pulse Ox O2 Delivery O2 Flow Rate FiO2 05/03/17 14:44 132 26 127/76 96 Oxymask 5.0 05/03/17 14:03 124 18 97 Mask 5.0 05/03/17 13:41 120 05/03/17 13:33 122 24 119/68 97 Oxymask 4.0 05/03/17 12:30 133 26 125/82 95 Oxymask 6.0 05/03/17 12:11 128 22 94 Mask 5.0 05/03/17 11:43 94 Oxymask 4.0 05/03/17 11:26 94 Oxymask 4.0 05/03/17 11:21 37.2 134 27 150/83 90 Room Air 05/03/17 11:16 145 General Appearance: WD/WN, + mild distress (intense coughing) Head: normocephalic, atraumatic Eyes: normal inspection, EOMI, sclerae normal Respiratory/Chest: + respiratory distress (with intense coughing), + decreased breath sounds, + wheezing Cardiovascular: normal peripheral pulses, + tachycardia Abdomen/GI: non tender, soft Extremities/Musculoskelatal: no calf tenderness, no pedal edema Neurologic/Psych: alert, normal mood/affect, oriented x 3 Skin: normal color, warm/dry Diagnostics Laboratory Results Results Past 24 Hours Test 05/03/17 11:40 05/03/17 13:31 05/03/17 14:09 Range/Units White Blood Count 10.85 4.8-10.8 K/uL Red Blood Count 4.71 4.7-6.1 M/uL Hemoglobin 15.0 14.0-18.0 g/dL Hematocrit 43.2 42-52 % Mean Corpuscular Volume 91.7 80-100 fL Mean Corpuscular Hemoglobin 31.8 25-34 pg Mean Corpuscular Hemoglobin Concent 34.7 32-36 g/dl Platelet Count 294 130-400 K/uL Mean Platelet Volume 9.2 7.4-10.4 fL Neutrophils (%) (Auto) 71.0 % Lymphocytes (%) (Auto) 17.0 % Monocytes (%) (Auto) 9.2 % Eosinophils (%) (Auto) 1.8 % Basophils (%) (Auto) 0.7 % Neutrophils # (Auto) 7.71 1.4-6.5 K/uL Lymphocytes # (Auto) 1.84 1.2-3.4 K/uL Monocytes # (Auto) 1.00 0.11-0.59 K/uL Eosinophils # (Auto) 0.19 0-0.5 K/uL Basophils # (Auto) 0.08 0-0.2 K/uL RDW Standard Deviation 44.7 36.4-46.3 fL RDW Coefficient of Variation 13.4 11.5-14.5 % Immature Granulocyte % (Auto) 0.3 % Immature Granulocyte # (Auto) 0.03 0.00-0.02 K/uL Prothrombin Time 10.4 9.0-12.0 SECONDS Prothromb Time International Ratio 1.0 0.9-1.1 Activated Partial Thromboplast Time 27.8 21.0-31.0 SECONDS Partial Thromboplastin Ratio 1.1 Sodium Level 138 136-145 mmol/L Potassium Level 3.6 3.5-5.1 mmol/L Chloride Level 103 98-107 mmol/L Carbon Dioxide Level 24 21-32 mmol/L Anion Gap 11.0 3-11 mmol/L Blood Urea Nitrogen 12 7-18 mg/dl Creatinine 1.32 0.60-1.40 mg/dl Est Creatinine Clear Calc Drug Dose 69.7 ml/min Estimated GFR () 71.4 Estimated GFR (Non- 61.6 BUN/Creatinine Ratio 9.3 10-20 Random Glucose 140 70-99 mg/dl Calcium Level 8.8 8.5-10.1 mg/dl Magnesium Level 1.7 1.8-2.4 mg/dl Total Bilirubin 0.4 0.2-1 mg/dl Direct Bilirubin < 0.1 0-0.2 mg/dl Aspartate Amino Transf (AST/SGOT) 15 15-37 U/L Alanine Aminotransferase (ALT/SGPT) 18 12-78 U/L Alkaline Phosphatase 118 45-117 U/L Troponin I < 0.015 0-0.045 ng/ml Total Protein 7.6 6.4-8.2 gm/dl Albumin 3.8 3.4-5.0 gm/dl Lipase 61 73-393 U/L Thyroid Stimulating Hormone (TSH) 0.520 0.300-4.500 uIu/ml Urine Color YELLOW Urine Appearance CLEAR CLEAR Urine pH 6.0 4.5-7.5 Urine Specific [place] 1.023 1.000-1.030 Urine Protein NEG NEG Urine Glucose (UA) NEG NEG Urine Ketones 1+ NEG Urine Occult Blood NEG NEG Urine Nitrite NEG NEG Urine Bilirubin NEG NEG Urine Urobilinogen NEG NEG Urine Leukocyte Esterase NEG NEG Influenza Type A Antigen POS for Influ A NEG Influenza Type B Antigen Neg for Influ B NEG Microbiology Results 05/03/17 Blood Culture, Received Pending 05/03/17 Blood Culture, Received Pending 05/03/17 Urine Culture, Received Pending Diagnostic Radiology CXR neg for acute CTA neg for PE or PNA, does show mild mucous plugging EKG Neg for acute Impression Assessment and Plan 52 y/o M who was admitted on 05/03 for COPD exacerbation COPD exacerbation: likely related to flu + Xopenex, solu-medrol 40mg BID CTA neg for PE but does suggest mucous plugging Add mucomyst, IS No home O2 use Flu+: Flu A Start tamiflu HTN, s/p CABG: does have mild chest pain at time Trop neg, serials pending Recent neg stress ECHO 12/2016 Tachycardia: likely related to flu Monitor overnight IVF DM: NPH + SSI A1c pending BPH, depression, hyperlipidemia, GERD: stable, continue home meds Other: Full code DM diet SCDs for DVT proph Level of Care Telemetry Resuscitation Status FULL RESUSCITATION VTE Prophylaxis VTE Risk Assessment Done? Y/N: Yes Risk Level: Low
[2017-05-03] MEDS ORDERED: METHYLPREDNISOLONE 125 MG in SYRINGE 0 ML IV ONE (17:45)
[2017-05-03] MEDS: SODIUM CHLORIDE 0.9% 1000ML 1,000 ML IV SCH (18:36)
[2017-05-03] MEDS: LEVALBUTEROL 1.25MG/3ML NEB INH SCH (19:10)
[2017-05-03] MEDS: ACETYLCYSTEINE 20% INHAL SOLN ***DISPENSED BY RESP. INH SCH (19:10)
[2017-05-03] MEDS ORDERED: MIRTAZAPINE SOLTAB 15 MG PO SCH (21:00)
[2017-05-03] MEDS: KETOROLAC TROMETHAMINE 30 MG/ML VIAL IV PRN (21:30)
[2017-05-03] MEDS: TAMSULOSIN HCL 0.4 MG CAP PO SCH (21:31)
[2017-05-03] MEDS: METOPROLOL TARTRATE 50 MG TAB PO SCH (21:31)
[2017-05-03] MEDS: NYSTATIN OINT 15 GM TUBE EXT SCH (21:31)
[2017-05-03] MEDS: INSULIN HUMAN NPH SC SCH (21:32)
[2017-05-03] MEDS: INSULIN ASPART 100 UNITS/ML 3 ML PEN SC SCH (21:33)
[2017-05-03] MEDS: NORTRIPTYLINE HCL 25 MG CAP PO SCH (21:34)
[2017-05-03] MEDS: LOVASTATIN 20 MG TAB PO SCH (21:34)
[2017-05-04] VITALS (10 sets, daily range): BP systolic 105–133; BP diastolic 56–75; PULSE 64–100; TEMP 36.4–37.1; O2SAT 93–97
[2017-05-04] MEDS: OSELTAMIVIR PHOSPHATE 75 MG CAP PO SCH ×3 (00:15→21:14)
[2017-05-04] MEDS: LEVALBUTEROL 1.25MG/3ML NEB INH SCH ×4 (02:04→19:24)
[2017-05-04] MEDS: KETOROLAC TROMETHAMINE 30 MG/ML VIAL IV PRN ×3 (03:28→18:48)
[2017-05-04] MEDS: SODIUM CHLORIDE 0.9% 1000ML 1,000 ML IV SCH ×2 (05:59→21:22)
[2017-05-04] MEDS: ACETYLCYSTEINE 20% INHAL SOLN ***DISPENSED BY RESP. INH SCH ×2 (07:09→19:24)
[2017-05-04] MEDS: PANTOprazole SOD 40 MG TAB PO SCH (08:03)
[2017-05-04] MEDS: LISINOPRIL 5 MG TAB PO SCH (08:03)
[2017-05-04] MEDS: ISOSORBIDE MONONITRATE 30 MG TABCR PO SCH (08:03)
[2017-05-04] MEDS: METOPROLOL TARTRATE 50 MG TAB PO SCH ×2 (08:03→21:14)
[2017-05-04] MEDS: NYSTATIN OINT 15 GM TUBE EXT SCH ×2 (08:03→21:15)
[2017-05-04 08:04] LABS: HEMOGLOBIN A1C 6.8 % (4.5-5.6)
[2017-05-04] MEDS: LATANOPROST 0.005% OP SOLN 2.5 ML BTL OP SCH (08:04)
[2017-05-04] MEDS: TIMOLOL MALEATE 0.5% OP SOLN 5 ML BTL OPB SCH (08:04)
[2017-05-04] MEDS: INSULIN ASPART 100 UNITS/ML 3 ML PEN SC SCH ×4 (08:07→21:21)
[2017-05-04] MEDS: INSULIN HUMAN NPH SC SCH ×2 (08:09→21:22)
[2017-05-04] MEDS ORDERED: METHYLPREDNISOLONE IV 40 MG in SYRINGE 0 ML IV SCH (09:00)
[2017-05-04] MEDS ORDERED: GUAIFENESIN 600 MG TABCR PO ONE (12:57)
[2017-05-04] MEDS ORDERED: POLYETHYLENE (MIRALAX) 17 GM PACK PO ONE (12:57)
--- NOTE | 2017-05-04 16:20 | Hospitalist Progress Note ---
Hospitalist Progress Note Date of Service May 04, 2017. (Cesilia Gale, PA-C) Subjective Pt evaluation today including: conversation w/ patient, physical exam, chart review, lab review, review of studies, review of inpatient medication list Patient seen and evaluated. No acute events overnight. Reporting just minimal improvement since admission. States he has a significant cough that occ. brings up mucus. States he feels like he is suffocating when he gets in his coughing attacks. Reporting L sided chest wall pain that has point tenderness and completely reproducible. Noting pre-syncopal feelings with significant coughing - likely vagal episodes - will continue to monitor Constitutional: No fever, No chills Respiratory: + cough, + sputum (intermittent), + wheezing, + shortness of breath Cardiovascular: + chest pain (L sided), No palpitations Abdomen: + pain, + constipation, No nausea, No vomiting, No diarrhea Musculoskeletal: No swelling, No calf pain Heme: No abnormal bleeding/bruising (Cesilia Gale, HENRYC) Medications Current Inpatient Medications Medications (Trade) Dose Ordered Sig/Los Route Start Time Stop Time Status Last Admin Dose Admin Ioversol (Optiray 320) 100 ml UD PRN IV 05/03/17 13:00 05/07/17 12:59 Insulin Aspart (novoLOG ASPART) SLIDING SCALE If C... ACHS SC 05/03/17 16:15 06/02/17 16:14 05/04/17 11:48 15 UNITS Glucose (Glucose 40% Gel) 15-30 GRAMS 15 GRAMS... UD PRN PO 05/03/17 15:45 06/02/17 15:44 Glucose (Glucose Chew Tab) 4-8 Tablets 4 Tabl... UD PRN PO 05/03/17 15:45 06/02/17 15:44 Dextrose (Dextrose 50% 50ML Syringe) 25-50ML OF 50% DW IV FOR... UD PRN IV 05/03/17 15:45 06/02/17 15:44 Glucagon (Glucagon Inj) 1 mg UD PRN SQ 05/03/17 15:45 06/02/17 15:44 Acetaminophen (Tylenol Tab) 650 mg Q4H PRN PO 05/03/17 15:45 06/02/17 15:44 05/03/17 16:22 650 MG Magnesium Hydroxide (Milk Of Magnesia Susp) 30 ml Q12H PRN PO 05/03/17 15:45 06/02/17 15:44 Ondansetron HCl (Zofran Inj) 4 mg Q6H PRN IV 05/03/17 15:45 06/02/17 15:44 Nitroglycerin (Nitrostat Tab) 0.4 mg UD PRN SL 05/03/17 15:45 06/02/17 15:44 Albuterol (Ventolin Hfa Inhaler) 2 puffs QID PRN INH 05/03/17 15:45 06/02/17 15:44 Insulin Human NPH (novoLIN-N NPH) 5 units BID SC 05/03/17 21:00 06/02/17 20:59 05/04/17 08:09 5 UNITS Isosorbide Mononitrate (Imdur Ext Rel Tab) 30 mg DAILY PO 05/04/17 09:00 06/03/17 08:59 05/04/17 08:03 30 MG Latanoprost (Xalatan Oph Soln) 1 drops DAILY OP 05/04/17 09:00 06/03/17 08:59 05/04/17 08:04 1 DROPS Lisinopril (Zestril Tab) 5 mg DAILY PO 05/04/17 09:00 06/03/17 08:59 05/04/17 08:03 5 MG Metoprolol Tartrate (Lopressor Tab) 50 mg BID PO 05/03/17 21:00 06/02/17 20:59 05/04/17 08:03 50 MG Nortriptyline HCl (Pamelor Cap) 50 mg HS PO 05/03/17 21:00 06/02/17 20:59 05/03/17 21:34 50 MG Nystatin (Mycostatin Oint) 1 appln BID EXT 05/03/17 21:00 06/02/17 20:59 05/03/17 21:31 1 APPLN Tamsulosin HCl (Flomax Cap) 0.4 mg HS PO 05/03/17 21:00 06/02/17 20:59 05/03/17 21:31 0.4 MG Timolol Maleate (Timoptic 0.5% Oph Soln) 1 drops QAM OPB 05/04/17 09:00 06/03/17 08:59 05/04/17 08:04 1 DROPS Lovastatin (Mevacor Tab) 40 mg PM PO 05/03/17 21:00 06/02/17 20:59 05/03/17 21:34 40 MG Mirtazapine (Remeron Solutab) 15 mg HS PO 05/03/17 21:00 06/02/17 20:59 05/03/17 21:34 15 MG Pantoprazole Sodium (Protonix Tab) 40 mg QAM PO 05/04/17 09:00 06/03/17 08:59 05/04/17 08:03 40 MG Acetylcysteine (Mucomyst 20% Inh Soln) 5 ml BIDR INH 05/03/17 20:00 06/02/17 19:59 05/04/17 07:09 5 ML Levalbuterol (Xopenex 1.25MG/ 3ML Neb) 1.25 mg Q6R INH 05/03/17 21:00 06/02/17 20:59 05/04/17 14:26 1.25 MG Oseltamivir Phosphate (Tamiflu Cap) 75 mg BID PO 05/03/17 23:30 05/08/17 23:29 05/04/17 08:02 75 MG Sodium Chloride 1,000 ml @ 80 mls/hr [id number] IV 05/03/17 18:00 06/02/17 17:59 05/04/17 05:59 80 MLS/HR Ketorolac Tromethamine (Toradol Inj) 30 mg Q6H PRN IV 05/03/17 19:45 05/08/17 19:44 05/04/17 11:51 30 MG Polyethylene (Miralax Powder Packet) 17 gm DAILY PO 05/05/17 09:00 06/04/17 08:59 Methylprednisolone Sodium Succinate 40 mg/Syringe 0.64 ml @ 1.5 mls/min Q6H IV 05/04/17 21:00 06/03/17 08:59 Guaifenesin (Mucinex Contr Rel Tab) 1,200 mg Q12 PO 05/04/17 21:00 06/03/17 20:59 (Cesilia Gale, HENRYC) Objective Vital Signs Date Time Temp Pulse Resp B/P (MAP) Pulse Ox O2 Delivery O2 Flow Rate FiO2 1/23/18 16:00 Room Air 3.0 05/04/17 14:27 72 16 95 Room Air 05/04/17 12:00 Room Air 3.0 05/04/17 11:29 36.8 89 20 129/75 (93) 97 05/04/17 08:00 Room Air 3.0 05/04/17 07:35 36.6 100 18 129/65 (86) 95 05/04/17 07:09 84 16 93 Room Air 05/04/17 04:00 Nasal Cannula 3.0 05/04/17 03:28 36.4 75 22 133/70 (91) 94 Nasal Cannula 3.0 05/04/17 02:23 96 18 94 Room Air 05/03/17 23:59 Nasal Cannula 3.0 05/03/17 23:24 36.7 102 19 160/98 (118) 92 Nasal Cannula 3.0 05/03/17 20:00 Nasal Cannula 3.0 05/03/17 19:46 36.6 118 24 114/68 (83) 92 Room Air 05/03/17 19:12 102 18 96 Mask 5.0 05/03/17 17:53 37.0 118 31 132/76 (94) 95 Oxymask 4.0 05/03/17 16:42 120 26 131/83 95 Oxymask 5.0 05/03/17 16:41 95 Mask 5.0 (Cesilia Gale, PA-C) Physical Exam General Appearance: WD/WN, + pertinent finding (ill appearing but non-toxic) Eyes: sclerae normal ENT: hearing grossly normal Neck: supple, no JVD, trachea midline Respiratory/Chest: no respiratory distress, no accessory muscle use, + wheezing (diffuse - inspiratory and expiratory), + pertinent finding (poor overall inspiratory airflow; L lower chest tender to palpation without evidence of rash or lesions) Cardiovascular: regular rate, rhythm, no gallop, no murmur Abdomen: normal bowel sounds Extremities: no pedal edema, no calf tenderness Neurologic/Psychiatric: alert, oriented x 3 Skin: normal color, warm/dry (Cesilia Gale, PA-C) Laboratory Results Last 24 Hours Test 05/03/17 18:43 05/03/17 21:13 05/04/17 00:10 05/04/17 05:27 Troponin I 0.015 ng/ml < 0.015 ng/ml Bedside Glucose 233 mg/dl Estimated Average Glucose 148 mg/dl Hemoglobin A1c 6.8 % Test 05/04/17 07:05 05/04/17 11:21 Bedside Glucose 174 mg/dl 102 mg/dl (Cesilia Gale, PA-C) Assessment and Plan 52 y/o M who was admitted on 05/03 for COPD exacerbation and Influenza A SIRS 2/2 Influenza A with COPD Exacerbation: - Increased respirations and tachycardia on initial presentation - improving - Still with overall poor airflow and inspiratory/expiratory wheezing - encouraged flutter valve to move secretions; evidence of mucus plugging - denies needing bronchoscopy in the past - is expelling mucus intermittently - could consider pulm consult if limited improvement - Tamiflu 75 mg BID until 05/08 - Methylprednisolone 40 mg IV Q6H - Mucinex 1200 mg BID - Mucomyst BID and Xopenex LOS CAD S/P CABG and HLD/HTN: - Serial troponins negative - continues with L sided chest pain that is reproducible - Toradol 30 mg IV Q6H PRN - Imdur 30 mg daily, Lisinopril 5 mg daily, Lopressor 50 mg BID, and Lovastatin 40 mg daily T2DM: A1c 6.8 - NPH 5 units SC BID and SSI BPH: - UCx with enterococcus - will monitor for signs/symptoms and treat if symptomatic - Flomax 0.4 mg HS GERD: - Protonix 40 mg daily DVT Prophylaxis: SCDs Code Status: FULL RESUSCITATION Disposition: - [facility] inmate - anticipate LOS 3-4 days Continued [facility] stay due to: multiple IV medications needed Discharge planning: other ([facility]) (Cesilia Gale, PA-C) Attending Attestation: Pt seen/examined, chart reviewed, care plan d/w KIM Gale. I agree w/ the devi components of her documentation. Pt c/o cough, dyspnea, wheezing. Also has had dysuria and poor stream with incomplete bladder emptying. VSS afebrile gen - NAD, coughing neck - no JVD heart - RRR, s1, s2 lungs - extensive exp wheezing b/l, decreased BS bases abd - soft, NT ext - no edema urine cx w/ enterococcus cbc, bmp acceptable A/P: 1. acute hypoxic resp failure 2nd to COPD exacerbation from influenza A infection - agree with IV steroids, nebs, etc. Tamiflu x 5 days; resp isolation. 2. enterococcal UTI - symptomatic - start amox 500mg TID; will need ELENA to r/o prostatitis given her BPH 3. T2DM - controlled with current regimen. 4. CAD - cont outpatient meds; no ischemic symptoms at this time. 5. chest wall pain from coughing - toradol prn; tramadol 50mg prn. [place] TAYLOR MD (Jermaine Taylor MD)
[2017-05-04] MEDS ORDERED: GUAIFENESIN 600 MG TABCR PO SCH (21:00)
[2017-05-04] MEDS: LOVASTATIN 20 MG TAB PO SCH (21:14)
[2017-05-04] MEDS: NORTRIPTYLINE HCL 25 MG CAP PO SCH (21:14)
[2017-05-04] MEDS: TAMSULOSIN HCL 0.4 MG CAP PO SCH (21:14)
[2017-05-04] MEDS: GUAIFENESIN 600 MG TABCR PO SCH (21:14)
[2017-05-04] MEDS: TRAMADOL HCL 50 MG TAB PO PRN (21:14)
[2017-05-04] MEDS: AMOXICILLIN 500 MG CAP PO SCH (21:15)
[2017-05-04] MEDS: METHYLPREDNISOLONE IV 40 MG in SYRINGE 0 ML IV SCH (21:15)
[2017-05-04] MEDS: MIRTAZAPINE TAB 15 MG TAB PO SCH (23:46)
[2017-05-05] VITALS (10 sets, daily range): BP systolic 109–135; BP diastolic 70–78; PULSE 67–80; TEMP 36.5–36.7; O2SAT 92–96
[2017-05-05] MEDS: KETOROLAC TROMETHAMINE 30 MG/ML VIAL IV PRN ×4 (01:18→21:22)
[2017-05-05] MEDS: LEVALBUTEROL 1.25MG/3ML NEB INH SCH ×4 (01:40→19:20)
[2017-05-05] MEDS: METHYLPREDNISOLONE IV 40 MG in SYRINGE 0 ML IV SCH ×4 (03:28→21:18)
[2017-05-05] MEDS: TRAMADOL HCL 50 MG TAB PO PRN ×2 (05:35→15:34)
[2017-05-05 05:58] LABS: HEMATOCRIT 41.6 % (42-52); HEMOGLOBIN 14.2 g/dL (14.0-18.0); MEAN CELL VOLUME 92.2 fL (80-100); MEAN CORPUSCULAR HEMOGLOBIN 31.5 pg (25-34); MEAN CORPUSCULAR HGB CONC 34.1 g/dl (32-36); MEAN PLATELET VOLUME 9.5 fL (7.4-10.4); PLATELET COUNT 315 K/uL (130-400); RED CELL DISTRIBUTION WIDTH CV 13.8 % (11.5-14.5); WHITE BLOOD COUNT 22.24 K/uL (4.8-10.8)
[2017-05-05 06:46] LABS: CALCIUM 8.8 mg/dl (8.5-10.1); CREATININE 1.15 mg/dl (0.60-1.40); POTASSIUM 4.2 mmol/L (3.5-5.1)
[2017-05-05] MEDS: ACETYLCYSTEINE 20% INHAL SOLN ***DISPENSED BY RESP. INH SCH ×2 (07:10→19:19)
[2017-05-05] MEDS: SODIUM CHLORIDE 0.9% 1000ML 1,000 ML IV SCH ×2 (07:30→21:01)
[2017-05-05] MEDS: INSULIN ASPART 100 UNITS/ML 3 ML PEN SC SCH ×4 (07:57→21:09)
[2017-05-05] MEDS: INSULIN HUMAN NPH SC SCH ×2 (07:58→21:10)
[2017-05-05] MEDS: AMOXICILLIN 500 MG CAP PO SCH ×3 (07:59→21:17)
[2017-05-05] MEDS: GUAIFENESIN 600 MG TABCR PO SCH ×2 (07:59→21:18)
[2017-05-05] MEDS: OSELTAMIVIR PHOSPHATE 75 MG CAP PO SCH ×2 (08:00→21:10)
[2017-05-05] MEDS: ISOSORBIDE MONONITRATE 30 MG TABCR PO SCH (08:00)
[2017-05-05] MEDS: PANTOprazole SOD 40 MG TAB PO SCH (08:00)
[2017-05-05] MEDS: LISINOPRIL 5 MG TAB PO SCH (08:00)
[2017-05-05] MEDS: METOPROLOL TARTRATE 50 MG TAB PO SCH ×2 (08:01→21:17)
[2017-05-05] MEDS: NYSTATIN OINT 15 GM TUBE EXT SCH ×2 (08:01→20:00)
[2017-05-05] MEDS: LATANOPROST 0.005% OP SOLN 2.5 ML BTL OP SCH (08:02)
[2017-05-05] MEDS: TIMOLOL MALEATE 0.5% OP SOLN 5 ML BTL OPB SCH (08:02)
[2017-05-05] MEDS ORDERED: POLYETHYLENE (MIRALAX) 17 GM PACK PO SCH (09:00)
--- NOTE | 2017-05-05 13:25 | Hospitalist Progress Note ---
Hospitalist Progress Note Date of Service May 05, 2017. (Cesilia Gale PA-C) Subjective Pt evaluation today including: conversation w/ patient, physical exam, chart review, lab review, review of studies, review of inpatient medication list Patient seen and evaluated. No acute events overnight. Reporting feeling a bit better compared to yesterday. Does appear better objectively. Airflow is generally poor with inspiratory/expiratory wheezing. No respiratory distress. Does get in coughing jags that makes him anxious and more short of breath. Continues to have abdominal distention and mild abd. pain. States he hasn't moved his bowels. Is having burning on urination with radiation into the groin which may be creating some of his pain. Constitutional: No fever, No chills ENT: No sore throat, No trouble swallowing Respiratory: + cough, + wheezing, + shortness of breath, No hemoptysis Cardiovascular: + chest pain (L lower chest) Abdomen: No pain, No nausea, No vomiting, No diarrhea Musculoskeletal: No swelling, No calf pain Male : + dysuria, + problem reported (groin pain) Heme: No abnormal bleeding/bruising (Cesilia Gale PA-C) Medications Current Inpatient Medications Medications (Trade) Dose Ordered Sig/Los Route Start Time Stop Time Status Last Admin Dose Admin Ioversol (Optiray 320) 100 ml UD PRN IV 05/03/17 13:00 05/07/17 12:59 Insulin Aspart (novoLOG ASPART) SLIDING SCALE If C... ACHS SC 05/03/17 16:15 06/02/17 16:14 05/05/17 11:51 20 UNITS Glucose (Glucose 40% Gel) 15-30 GRAMS 15 GRAMS... UD PRN PO 05/03/17 15:45 06/02/17 15:44 Glucose (Glucose Chew Tab) 4-8 Tablets 4 Tabl... UD PRN PO 05/03/17 15:45 06/02/17 15:44 Dextrose (Dextrose 50% 50ML Syringe) 25-50ML OF 50% DW IV FOR... UD PRN IV 05/03/17 15:45 06/02/17 15:44 Glucagon (Glucagon Inj) 1 mg UD PRN SQ 05/03/17 15:45 06/02/17 15:44 Acetaminophen (Tylenol Tab) 650 mg Q4H PRN PO 05/03/17 15:45 06/02/17 15:44 05/03/17 16:22 650 MG Magnesium Hydroxide (Milk Of Magnesia Susp) 30 ml Q12H PRN PO 05/03/17 15:45 06/02/17 15:44 Ondansetron HCl (Zofran Inj) 4 mg Q6H PRN IV 05/03/17 15:45 06/02/17 15:44 Nitroglycerin (Nitrostat Tab) 0.4 mg UD PRN SL 05/03/17 15:45 06/02/17 15:44 Albuterol (Ventolin Hfa Inhaler) 2 puffs QID PRN INH 05/03/17 15:45 06/02/17 15:44 Insulin Human NPH (novoLIN-N NPH) 5 units BID SC 05/03/17 21:00 06/02/17 20:59 05/05/17 07:58 5 UNITS Isosorbide Mononitrate (Imdur Ext Rel Tab) 30 mg DAILY PO 05/04/17 09:00 06/03/17 08:59 05/05/17 08:00 30 MG Latanoprost (Xalatan Oph Soln) 1 drops DAILY OP 05/04/17 09:00 06/03/17 08:59 05/05/17 08:02 1 DROPS Lisinopril (Zestril Tab) 5 mg DAILY PO 05/04/17 09:00 06/03/17 08:59 05/05/17 08:00 5 MG Metoprolol Tartrate (Lopressor Tab) 50 mg BID PO 05/03/17 21:00 06/02/17 20:59 05/05/17 08:01 50 MG Nortriptyline HCl (Pamelor Cap) 50 mg HS PO 05/03/17 21:00 06/02/17 20:59 05/04/17 21:14 50 MG Nystatin (Mycostatin Oint) 1 appln BID EXT 05/03/17 21:00 06/02/17 20:59 05/04/17 21:15 1 APPLN Tamsulosin HCl (Flomax Cap) 0.4 mg HS PO 05/03/17 21:00 06/02/17 20:59 05/04/17 21:14 0.4 MG Timolol Maleate (Timoptic 0.5% Oph Soln) 1 drops QAM OPB 05/04/17 09:00 06/03/17 08:59 05/05/17 08:02 1 DROPS Lovastatin (Mevacor Tab) 40 mg PM PO 05/03/17 21:00 06/02/17 20:59 05/04/17 21:14 40 MG Pantoprazole Sodium (Protonix Tab) 40 mg QAM PO 05/04/17 09:00 06/03/17 08:59 05/05/17 08:00 40 MG Acetylcysteine (Mucomyst 20% Inh Soln) 5 ml BIDR INH 05/03/17 20:00 06/02/17 19:59 05/05/17 07:10 5 ML Levalbuterol (Xopenex 1.25MG/ 3ML Neb) 1.25 mg Q6R INH 05/03/17 21:00 06/02/17 20:59 05/05/17 07:10 1.25 MG Oseltamivir Phosphate (Tamiflu Cap) 75 mg BID PO 05/03/17 23:30 05/08/17 23:29 05/05/17 08:00 75 MG Sodium Chloride 1,000 ml @ 80 mls/hr [id number] IV 05/03/17 18:00 06/02/17 17:59 05/05/17 07:30 80 MLS/HR Ketorolac Tromethamine (Toradol Inj) 30 mg Q6H PRN IV 05/03/17 19:45 05/08/17 19:44 05/05/17 07:58 30 MG Polyethylene (Miralax Powder Packet) 17 gm DAILY PO 05/05/17 09:00 06/04/17 08:59 05/05/17 08:07 17 GM Methylprednisolone Sodium Succinate 40 mg/Syringe 0.64 ml @ 1.5 mls/min Q6H IV 05/04/17 21:00 06/03/17 08:59 05/05/17 07:58 1.5 MLS/MIN Guaifenesin (Mucinex Contr Rel Tab) 1,200 mg Q12 PO 05/04/17 21:00 06/03/17 20:59 05/05/17 07:59 1,200 MG Tramadol HCl (Ultram Tab) 50 mg Q8H PRN PO 05/04/17 19:45 06/03/17 19:44 05/05/17 05:35 50 MG Amoxicillin (Amoxil Cap) 500 mg TID PO 05/04/17 21:00 05/09/17 20:59 05/05/17 07:59 500 MG Mirtazapine (Remeron Tab) 15 mg HS PO 05/05/17 21:00 06/04/17 20:59 05/04/17 23:46 15 MG (Cesilia Gale PA-C) Objective Vital Signs Date Time Temp Pulse Resp B/P (MAP) Pulse Ox O2 Delivery O2 Flow Rate FiO2 05/05/17 12:00 Room Air 3.0 05/05/17 11:06 36.7 69 20 135/75 (95) 94 Nasal Cannula 3.0 05/05/17 08:00 Room Air 3.0 05/05/17 07:30 36.5 67 24 125/78 (94) 93 Room Air 05/05/17 07:10 74 20 93 Nasal Cannula 3.0 05/05/17 04:00 Nasal Cannula 3.0 05/05/17 03:30 36.6 71 20 126/75 (92) 92 Nasal Cannula 2.0 05/05/17 01:40 80 20 96 Nasal Cannula 3.0 05/05/17 00:00 Nasal Cannula 3.0 05/04/17 23:38 36.8 64 18 128/75 (92) 94 Nasal Cannula 2.0 05/04/17 20:00 Room Air 3.0 05/04/17 19:24 65 20 93 Nasal Cannula 3.0 05/04/17 19:21 36.5 67 25 107/64 (78) 93 Nasal Cannula 3.0 05/04/17 16:04 37.1 66 24 105/56 (72) 94 Nasal Cannula 3.0 05/04/17 16:00 Room Air 3.0 05/04/17 14:27 72 16 95 Room Air (Cesilia Gale PA-C) Physical Exam General Appearance: WD/WN, no apparent distress Eyes: sclerae normal ENT: hearing grossly normal Neck: supple, no JVD, trachea midline Respiratory/Chest: no respiratory distress, no accessory muscle use, + rhonchi , + wheezing (inspiratory and expiratory), + pertinent finding (diminished air flow diffusely) Cardiovascular: regular rate, rhythm, no gallop, no murmur Abdomen: normal bowel sounds, + distended Extremities: no calf tenderness Neurologic/Psychiatric: alert, oriented x 3 Skin: normal color, warm/dry (Cesilia Gale, PA-C) Laboratory Results Last 24 Hours Test 05/04/17 16:39 05/04/17 21:03 05/05/17 05:31 05/05/17 06:52 Bedside Glucose 140 mg/dl 151 mg/dl 205 mg/dl White Blood Count 22.24 K/uL Red Blood Count 4.51 M/uL Hemoglobin 14.2 g/dL Hematocrit 41.6 % Mean Corpuscular Volume 92.2 fL Mean Corpuscular Hemoglobin 31.5 pg Mean Corpuscular Hemoglobin Concent 34.1 g/dl RDW Standard Deviation 46.0 fL RDW Coefficient of Variation 13.8 % Platelet Count 315 K/uL Mean Platelet Volume 9.5 fL Sodium Level 140 mmol/L Potassium Level 4.2 mmol/L Chloride Level 107 mmol/L Carbon Dioxide Level 24 mmol/L Anion Gap 9.0 mmol/L Blood Urea Nitrogen 21 mg/dl Creatinine 1.15 mg/dl Est Creatinine Clear Calc Drug Dose 80.7 ml/min Estimated GFR () 84.3 Estimated GFR (Non- 72.8 BUN/Creatinine Ratio 18.6 Random Glucose 240 mg/dl Calcium Level 8.8 mg/dl Magnesium Level 2.1 mg/dl Test 05/05/17 11:04 Bedside Glucose 181 mg/dl (Cesilia Gale, PA-C) Assessment and Plan 52 y/o M who was admitted on 05/03 for COPD exacerbation and Influenza A Acute Hypoxic Respiratory Failure and Sepsis 2/2 Influenza A with COPD Exacerbation: - Still with overall poor airflow and inspiratory/expiratory wheezing - encouraged flutter valve to move secretions; evidence of mucus plugging - denies needing bronchoscopy in the past - is expelling mucus intermittently - could consider pulm consult if limited improvement but will hold off as clinically is improving - Tamiflu 75 mg BID until 05/08 - Methylprednisolone 40 mg IV Q6H - Mucinex 1200 mg BID - Mucomyst BID and Xopenex LOS Abdominal Pain: - Is distended - will obtain KUB - Possible related to UTI CAD S/P CABG and HLD/HTN: STABLE - Serial troponins negative - continues with L sided chest pain that is reproducible - Toradol 30 mg IV PRN and Tramadol - Imdur 30 mg daily, Lisinopril 5 mg daily, Lopressor 50 mg BID, and Lovastatin 40 mg daily T2DM: A1c 6.8 - NPH 5 units SC BID and SSI Enterococcus UTI - Symptomatic with BPH: - Amoxil 500 mg TID - Flomax 0.4 mg HS GERD: - Protonix 40 mg daily DVT Prophylaxis: SCDs Code Status: FULL RESUSCITATION Disposition: - [facility] inmate - anticipate LOS 3-4 days Continued [facility] stay due to: multiple IV medications needed Discharge planning: other ([facility]) (Cesilia Gale, MARGARET) PA Physician Supervision Note: I interviewed and examined the patient. Discussed with Cesliia Gale PAC and agree with findings and plan as documented in the note. Any exceptions or clarifications are listed here: None Patient states he doesn't feel much better being treated currently for his influenza on top of a COPD exacerbation. The patient however is able to talk fluently in full sentences without purse lipped breathing or marked dyspnea with evaluation Temperature is 36 5 pulse is 67 respiration rate 24 BP 125 or 78 Lung exam shows diffuse decreased breath sounds in all lung galindo no wheezes but prolonged expiratory phase very little coughing during exam Continue acute treatment for COPD exacerbation and influenza A also managing type 2 diabetes BPH and a current enterococcus urinary tract infection present on admission I reviewed KUB this evening showing moderate fecal retention necessitating the need for increased laxatives Documented By: Benito Perdomo (Benito Perdomo M.D.)
--- NOTE | 2017-05-05 16:12 | DIAGNOSTIC IMAGING REPORT ---
KUB CLINICAL HISTORY: Generalized abdominal pain. FINDINGS: 2 AP supine abdominal radiographs are obtained. No prior studies are available for comparison at the time of dictation. There is a nonobstructed abdominal bowel gas pattern noting moderate colonic fecal retention. No evidence of intraperitoneal free air is seen on these supine images. There are no abnormal abdominal calcifications. The bony structures appear intact. IMPRESSION: Nonobstructed abdominal bowel gas pattern noting moderate colonic fecal retention. Electronically signed by: Kirill Snyder M.D. 05/05/2017 4:10 PM Dictated Date/Time: 05/05/2017 4:09 PM
[2017-05-05] MEDS: LOVASTATIN 20 MG TAB PO SCH (21:11)
[2017-05-05] MEDS: POLYETHYLENE (MIRALAX) 17 GM PACK PO SCH (21:11)
[2017-05-05] MEDS: NORTRIPTYLINE HCL 25 MG CAP PO SCH (21:19)
[2017-05-05] MEDS: TAMSULOSIN HCL 0.4 MG CAP PO SCH (21:19)
[2017-05-05] MEDS: MIRTAZAPINE TAB 15 MG TAB PO SCH (21:20)
[2017-05-06] VITALS (10 sets, daily range): BP systolic 118–155; BP diastolic 72–93; PULSE 64–88; TEMP 36.4–36.8; O2SAT 93–97
[2017-05-06] MEDS: TRAMADOL HCL 50 MG TAB PO PRN ×3 (00:36→17:53)
[2017-05-06] MEDS: LEVALBUTEROL 1.25MG/3ML NEB INH SCH ×4 (01:58→19:36)
[2017-05-06] MEDS: METHYLPREDNISOLONE IV 40 MG in SYRINGE 0 ML IV SCH ×4 (02:57→21:47)
[2017-05-06] MEDS: SODIUM CHLORIDE 0.9% 1000ML 1,000 ML IV SCH ×2 (05:46→19:02)
[2017-05-06 06:44] LABS: HEMATOCRIT 44.1 % (42-52); MEAN CELL VOLUME 93.2 fL (80-100); MEAN CORPUSCULAR HEMOGLOBIN 31.7 pg (25-34); MEAN PLATELET VOLUME 9.4 fL (7.4-10.4); PLATELET COUNT 349 K/uL (130-400); RED CELL DISTRIBUTION WIDTH CV 13.8 % (11.5-14.5); RED CELL DISTRIBUTION WIDTH SD 47.3 fL (36.4-46.3)
[2017-05-06] MEDS: ACETYLCYSTEINE 20% INHAL SOLN ***DISPENSED BY RESP. INH SCH ×2 (06:54→19:35)
[2017-05-06 07:17] LABS: CALCIUM 8.7 mg/dl (8.5-10.1); CREATININE 1.28 mg/dl (0.60-1.40); POTASSIUM 3.9 mmol/L (3.5-5.1)
[2017-05-06] MEDS: GUAIFENESIN 600 MG TABCR PO SCH ×2 (08:45→21:08)
[2017-05-06] MEDS: OSELTAMIVIR PHOSPHATE 75 MG CAP PO SCH ×2 (08:45→21:08)
[2017-05-06] MEDS: POLYETHYLENE (MIRALAX) 17 GM PACK PO SCH ×2 (08:45→21:09)
[2017-05-06] MEDS: AMOXICILLIN 500 MG CAP PO SCH ×3 (08:45→21:08)
[2017-05-06] MEDS: METOPROLOL TARTRATE 50 MG TAB PO SCH ×2 (08:46→21:09)
[2017-05-06] MEDS: NYSTATIN OINT 15 GM TUBE EXT SCH ×2 (08:46→20:00)
[2017-05-06] MEDS: ISOSORBIDE MONONITRATE 30 MG TABCR PO SCH (08:46)
[2017-05-06] MEDS: LATANOPROST 0.005% OP SOLN 2.5 ML BTL OP SCH (08:47)
[2017-05-06] MEDS: LISINOPRIL 5 MG TAB PO SCH (08:47)
[2017-05-06] MEDS: TIMOLOL MALEATE 0.5% OP SOLN 5 ML BTL OPB SCH (08:47)
[2017-05-06] MEDS: PANTOprazole SOD 40 MG TAB PO SCH (08:48)
[2017-05-06] MEDS: INSULIN HUMAN NPH SC SCH ×2 (08:51→21:07)
[2017-05-06] MEDS: INSULIN ASPART 100 UNITS/ML 3 ML PEN SC SCH ×4 (08:51→21:06)
[2017-05-06] MEDS: KETOROLAC TROMETHAMINE 30 MG/ML VIAL IV PRN ×2 (11:06→19:02)
[2017-05-06] MEDS ORDERED: LEVALBUTEROL 1.25MG/3ML NEB INH PRN (11:15)
[2017-05-06] MEDS ORDERED: LEVALBUTEROL 1.25MG/3ML NEB INH ONE (11:30)
[2017-05-06] MEDS: IPRATROPIUM BROMIDE NEB SOLN 0.02% 2.5 ML VIAL INH SCH ×3 (12:30→19:36)
[2017-05-06] MEDS ORDERED: SENNA 8.6 MG TAB PO ONE (13:35)
--- NOTE | 2017-05-06 13:41 | Hospitalist Progress Note ---
Hospitalist Progress Note Date of Service May 06, 2017. (Cesilia Gale PAJohnC) Subjective Pt evaluation today including: conversation w/ patient, physical exam, chart review, lab review, review of studies, conversation w/ oracle application consultant (Respiratory) , review of inpatient medication list Patient seen and evaluated. No acute events overnight. Feels that his breathing was better yesterday morning but was worsening throughout the day and not great today either. Patient still on supplemental O2. Airflow significantly diminished and minimal wheeze. Placed PRN nebulizers. At rest he says he is ok but when coughing jags start he gets very SOB. Does report that he is moving more secretions today. Still not having any bowel movements. Recommended to take Miralax. Wants to hold off on suppositories/enemas. Constitutional: + fatigue, No fever, No chills Respiratory: + cough, + sputum, + wheezing, + shortness of breath Cardiovascular: + chest pain, No palpitations Abdomen: + pain, + constipation, No nausea, No vomiting, No diarrhea Musculoskeletal: No swelling, No calf pain Male : + dysuria Heme: No abnormal bleeding/bruising (Cesilia Gale, KIM-C) Medications Current Inpatient Medications Medications (Trade) Dose Ordered Sig/Los Route Start Time Stop Time Status Last Admin Dose Admin Ioversol (Optiray 320) 100 ml UD PRN IV 05/03/17 13:00 05/07/17 12:59 Insulin Aspart (novoLOG ASPART) SLIDING SCALE If C... ACHS SC 05/03/17 16:15 06/02/17 16:14 05/06/17 13:06 14 UNITS Glucose (Glucose 40% Gel) 15-30 GRAMS 15 GRAMS... UD PRN PO 05/03/17 15:45 06/02/17 15:44 Glucose (Glucose Chew Tab) 4-8 Tablets 4 Tabl... UD PRN PO 05/03/17 15:45 06/02/17 15:44 Dextrose (Dextrose 50% 50ML Syringe) 25-50ML OF 50% DW IV FOR... UD PRN IV 05/03/17 15:45 06/02/17 15:44 Glucagon (Glucagon Inj) 1 mg UD PRN SQ 05/03/17 15:45 06/02/17 15:44 Acetaminophen (Tylenol Tab) 650 mg Q4H PRN PO 05/03/17 15:45 06/02/17 15:44 05/03/17 16:22 650 MG Magnesium Hydroxide (Milk Of Magnesia Susp) 30 ml Q12H PRN PO 05/03/17 15:45 06/02/17 15:44 Ondansetron HCl (Zofran Inj) 4 mg Q6H PRN IV 05/03/17 15:45 06/02/17 15:44 Nitroglycerin (Nitrostat Tab) 0.4 mg UD PRN SL 05/03/17 15:45 06/02/17 15:44 Albuterol (Ventolin Hfa Inhaler) 2 puffs QID PRN INH 05/03/17 15:45 06/02/17 15:44 Insulin Human NPH (novoLIN-N NPH) 5 units BID SC 05/03/17 21:00 06/02/17 20:59 05/06/17 08:51 5 UNITS Isosorbide Mononitrate (Imdur Ext Rel Tab) 30 mg DAILY PO 05/04/17 09:00 06/03/17 08:59 05/06/17 08:46 30 MG Latanoprost (Xalatan Oph Soln) 1 drops DAILY OP 05/04/17 09:00 06/03/17 08:59 05/06/17 08:47 1 DROPS Lisinopril (Zestril Tab) 5 mg DAILY PO 05/04/17 09:00 06/03/17 08:59 05/06/17 08:47 5 MG Metoprolol Tartrate (Lopressor Tab) 50 mg BID PO 05/03/17 21:00 06/02/17 20:59 05/06/17 08:46 50 MG Nortriptyline HCl (Pamelor Cap) 50 mg HS PO 05/03/17 21:00 06/02/17 20:59 05/05/17 21:19 50 MG Nystatin (Mycostatin Oint) 1 appln BID EXT 05/03/17 21:00 06/02/17 20:59 05/06/17 08:46 1 APPLN Tamsulosin HCl (Flomax Cap) 0.4 mg HS PO 05/03/17 21:00 06/02/17 20:59 05/05/17 21:19 0.4 MG Timolol Maleate (Timoptic 0.5% Oph Soln) 1 drops QAM OPB 05/04/17 09:00 06/03/17 08:59 05/06/17 08:47 1 DROPS Lovastatin (Mevacor Tab) 40 mg PM PO 05/03/17 21:00 06/02/17 20:59 05/05/17 21:11 40 MG Pantoprazole Sodium (Protonix Tab) 40 mg QAM PO 05/04/17 09:00 06/03/17 08:59 05/06/17 08:48 40 MG Acetylcysteine (Mucomyst 20% Inh Soln) 5 ml BIDR INH 05/03/17 20:00 06/02/17 19:59 05/06/17 06:54 5 ML Levalbuterol (Xopenex 1.25MG/ 3ML Neb) 1.25 mg Q6R INH 05/03/17 21:00 06/02/17 20:59 05/06/17 06:55 1.25 MG Oseltamivir Phosphate (Tamiflu Cap) 75 mg BID PO 05/03/17 23:30 05/08/17 23:29 05/06/17 08:45 75 MG Sodium Chloride 1,000 ml @ 80 mls/hr [id number] IV 05/03/17 18:00 06/02/17 17:59 05/06/17 05:46 80 MLS/HR Ketorolac Tromethamine (Toradol Inj) 30 mg Q6H PRN IV 05/03/17 19:45 05/08/17 19:44 05/06/17 11:06 30 MG Methylprednisolone Sodium Succinate 40 mg/Syringe 0.64 ml @ 1.5 mls/min Q6H IV 05/04/17 21:00 06/03/17 08:59 05/06/17 08:48 1.5 MLS/MIN Guaifenesin (Mucinex Contr Rel Tab) 1,200 mg Q12 PO 05/04/17 21:00 06/03/17 20:59 05/06/17 08:45 1,200 MG Tramadol HCl (Ultram Tab) 50 mg Q8H PRN PO 05/04/17 19:45 06/03/17 19:44 05/06/17 09:04 50 MG Amoxicillin (Amoxil Cap) 500 mg TID PO 05/04/17 21:00 05/09/17 20:59 05/06/17 12:57 500 MG Mirtazapine (Remeron Tab) 15 mg HS PO 05/05/17 21:00 06/04/17 20:59 05/05/17 21:20 15 MG Polyethylene (Miralax Powder Packet) 17 gm BID PO 05/05/17 20:00 06/04/17 08:59 05/06/17 08:45 17 GM Levalbuterol (Xopenex 1.25MG/ 3ML Neb) 1.25 mg Q2H PRN INH 05/06/17 11:15 06/05/17 11:14 Formoterol Fumarate (Perforomist 20MCG/2ML Neb Soln) 20 mcg BIDR INH 05/06/17 20:00 06/05/17 19:59 Ipratropium [place] (Atrovent 0.02% 0.5MG/2.5ML Neb) 0.5 mg Q6R INH 05/06/17 12:30 06/05/17 12:29 (Cesilia Gale, PA-C) Objective Vital Signs Date Time Temp Pulse Resp B/P (MAP) Pulse Ox O2 Delivery O2 Flow Rate FiO2 05/06/17 11:18 88 26 93 Nasal Cannula 4.0 05/06/17 08:00 95 Nasal Cannula 2.0 05/06/17 07:22 36.4 64 18 131/80 (97) 95 05/06/17 06:55 74 22 95 Nasal Cannula 3.0 05/06/17 02:45 Room Air 05/06/17 01:58 71 22 97 Nasal Cannula 3.0 05/06/17 00:18 36.4 70 18 118/72 (87) 95 3.0 05/05/17 21:16 75 122/77 (92) 05/05/17 19:20 70 20 94 Nasal Cannula 3.0 05/05/17 15:28 36.5 76 20 109/70 (83) 92 Nasal Cannula 2.0 05/05/17 15:03 36.7 80 20 94 3.0 05/05/17 14:15 80 20 94 Nasal Cannula 3.0 (Cesilia Gale, PA-C) Physical Exam General Appearance: WD/WN, no apparent distress Eyes: sclerae normal ENT: hearing grossly normal Neck: supple, no JVD, trachea midline Respiratory/Chest: no respiratory distress, no accessory muscle use, + decreased breath sounds (diffuse poor air flow in all lung galindo), + rhonchi, + wheezing (minimal expiratory wheeze) Cardiovascular: regular rate, rhythm, no gallop, no murmur Abdomen: normal bowel sounds, non tender, + distended Extremities: no calf tenderness Neurologic/Psychiatric: alert Skin: normal color, warm/dry (Cesilia Gale PA-C) Laboratory Results Last 24 Hours Test 05/05/17 16:33 05/05/17 20:19 05/06/17 06:18 05/06/17 07:20 Bedside Glucose 128 mg/dl 194 mg/dl 175 mg/dl White Blood Count 19.60 K/uL Red Blood Count 4.73 M/uL Hemoglobin 15.0 g/dL Hematocrit 44.1 % Mean Corpuscular Volume 93.2 fL Mean Corpuscular Hemoglobin 31.7 pg Mean Corpuscular Hemoglobin Concent 34.0 g/dl RDW Standard Deviation 47.3 fL RDW Coefficient of Variation 13.8 % Platelet Count 349 K/uL Mean Platelet Volume 9.4 fL Sodium Level 138 mmol/L Potassium Level 3.9 mmol/L Chloride Level 104 mmol/L Carbon Dioxide Level 29 mmol/L Anion Gap 5.0 mmol/L Blood Urea Nitrogen 23 mg/dl Creatinine 1.28 mg/dl Est Creatinine Clear Calc Drug Dose 72.5 ml/min Estimated GFR () 74.1 Estimated GFR (Non- 63.9 BUN/Creatinine Ratio 17.9 Random Glucose 176 mg/dl Calcium Level 8.7 mg/dl Magnesium Level 2.2 mg/dl (Cesilia Gale PA-C) Assessment and Plan 52 y/o M who was admitted on 05/03 for COPD exacerbation and Influenza A Acute Hypoxic Respiratory Failure and Sepsis 2/2 Influenza A with COPD Exacerbation: - Airways sound extremely tight and wheezing seems to be lessened due to this - discussed with pulmonology for further recommendations and orders placed - recommend repeat CXR in AM and if not improved will place formal consultation - Tamiflu 75 mg BID until 05/08 - Methylprednisolone 40 mg IV Q6H - will not taper yet - Mucinex 1200 mg BID - Mucomyst BID, Xopenex/Atrovent LOS, Formoterol BID Abdominal Pain: - KUB with moderate fecal retention - will implement LOS bowel regimen CAD S/P CABG and HLD/HTN: STABLE - M/S pain - Toradol 30 mg IV PRN and Tramadol - Imdur 30 mg daily, Lisinopril 5 mg daily, Lopressor 50 mg BID, and Lovastatin 40 mg daily T2DM: A1c 6.8 - NPH 5 units SC BID and SSI Enterococcus UTI - Symptomatic with BPH: - Amoxil 500 mg TID - Flomax 0.4 mg HS GERD: - Protonix 40 mg daily DVT Prophylaxis: SCDs Code Status: FULL RESUSCITATION Disposition: - [facility] inmate - anticipate LOS 3-4 days Continued [facility] stay due to: multiple IV medications needed Discharge planning: home ([facility]) (Cesilia Gale, HENRYC) PA Physician Supervision Note: I interviewed and examined the patient. Discussed with Cesilia Gale PAC and agree with findings and plan as documented in the note. Any exceptions or clarifications are listed here: None Patient has had little improvement in his breathing however he remains with increased nonproductive coughing and overall overall he feels weak and tired Vital signs temp 36 for respiration rate 18 blood pressure 131/81 O2 sat remains good on room air he remains with leukocytosis His lungs have prolonged expiratory phase and poor air movement no focal air loss he has diffuse wheezing throughout Patient is continuing to have a slow recovering from an influenza exacerbation on top of existing chronic lung disease continuing treatment with Tamiflu steroids and supportive nebulizers with the addition of flutter valve continuing mucolytic and adding formoterol considering pulmonary evaluation if improvement remains low Documented By: Benito Perdomo (Benito Perdomo M.D.)
[2017-05-06] MEDS: FORMOTEROL FUMA NEBULIZER SOLN 20 MCG/2 ML VIAL INH SCH (19:37)
[2017-05-06] MEDS: LOVASTATIN 20 MG TAB PO SCH (21:07)
[2017-05-06] MEDS: NORTRIPTYLINE HCL 25 MG CAP PO SCH (21:07)
[2017-05-06] MEDS: TAMSULOSIN HCL 0.4 MG CAP PO SCH (21:09)
[2017-05-06] MEDS: MIRTAZAPINE TAB 15 MG TAB PO SCH (21:09)
[2017-05-07] VITALS (8 sets, daily range): BP systolic 145–153; BP diastolic 87–92; PULSE 58–86; TEMP 36.5–36.6; O2SAT 92–96
[2017-05-07] MEDS: KETOROLAC TROMETHAMINE 30 MG/ML VIAL IV PRN ×2 (01:55→08:50)
[2017-05-07] MEDS: LEVALBUTEROL 1.25MG/3ML NEB INH SCH ×4 (02:08→19:46)
[2017-05-07] MEDS: IPRATROPIUM BROMIDE NEB SOLN 0.02% 2.5 ML VIAL INH SCH ×4 (02:08→19:46)
[2017-05-07] MEDS: METHYLPREDNISOLONE IV 40 MG in SYRINGE 0 ML IV SCH (03:25)
[2017-05-07] MEDS: TRAMADOL HCL 50 MG TAB PO PRN ×3 (05:58→23:40)
[2017-05-07 07:07] LABS: HEMOGLOBIN 14.7 g/dL (14.0-18.0); MEAN CELL VOLUME 92.3 fL (80-100); MEAN CORPUSCULAR HEMOGLOBIN 31.5 pg (25-34); MEAN CORPUSCULAR HGB CONC 34.2 g/dl (32-36); MEAN PLATELET VOLUME 9.3 fL (7.4-10.4); PLATELET COUNT 340 K/uL (130-400); RED CELL DISTRIBUTION WIDTH CV 13.8 % (11.5-14.5); RED CELL DISTRIBUTION WIDTH SD 46.5 fL (36.4-46.3)
[2017-05-07] MEDS: ACETYLCYSTEINE 20% INHAL SOLN ***DISPENSED BY RESP. INH SCH ×2 (07:20→19:46)
--- NOTE | 2017-05-07 07:23 | DIAGNOSTIC IMAGING REPORT ---
CHEST ONE VIEW PORTABLE CLINICAL HISTORY: Dyspnea; Influenza A dyspnea COMPARISON STUDY: 05/03/2017 FINDINGS: Subsegmental atelectasis left base. Lungs otherwise are clear. Median sternotomy. Diaphragms smooth. IMPRESSION: Subsegmental atelectasis left base. Lungs otherwise are clear. The above report was generated using voice recognition software. It may contain grammatical, syntax or spelling errors. Electronically signed by: Ra Dominguez M.D. 05/07/2017 7:22 AM Dictated Date/Time: 05/07/2017 7:21 AM
[2017-05-07 07:35] LABS: CALCIUM 8.7 mg/dl (8.5-10.1); CREATININE 1.27 mg/dl (0.60-1.40)
[2017-05-07] MEDS: FORMOTEROL FUMA NEBULIZER SOLN 20 MCG/2 ML VIAL INH SCH ×2 (07:50→19:58)
[2017-05-07] MEDS: INSULIN ASPART 100 UNITS/ML 3 ML PEN SC SCH ×4 (08:38→20:43)
[2017-05-07] MEDS: INSULIN HUMAN NPH SC SCH ×2 (08:39→20:42)
[2017-05-07] MEDS: NYSTATIN OINT 15 GM TUBE EXT SCH ×2 (08:41→20:41)
[2017-05-07] MEDS: TIMOLOL MALEATE 0.5% OP SOLN 5 ML BTL OPB SCH (08:41)
[2017-05-07] MEDS: LATANOPROST 0.005% OP SOLN 2.5 ML BTL OP SCH (08:41)
[2017-05-07] MEDS: OSELTAMIVIR PHOSPHATE 75 MG CAP PO SCH ×2 (08:41→20:40)
[2017-05-07] MEDS: METOPROLOL TARTRATE 50 MG TAB PO SCH ×2 (08:42→20:42)
[2017-05-07] MEDS: SENNA 8.6 MG TAB PO SCH (08:42)
[2017-05-07] MEDS: PANTOprazole SOD 40 MG TAB PO SCH (08:42)
[2017-05-07] MEDS: GUAIFENESIN 600 MG TABCR PO SCH ×2 (08:43→20:39)
[2017-05-07] MEDS: ISOSORBIDE MONONITRATE 30 MG TABCR PO SCH (08:43)
[2017-05-07] MEDS: LISINOPRIL 5 MG TAB PO SCH (08:45)
[2017-05-07] MEDS: AMOXICILLIN 500 MG CAP PO SCH ×3 (08:45→20:41)
[2017-05-07] MEDS: SODIUM CHLORIDE 0.9% 1000ML 1,000 ML IV SCH ×2 (08:46→20:43)
[2017-05-07] MEDS: POLYETHYLENE (MIRALAX) 17 GM PACK PO SCH ×2 (08:46→20:40)
--- NOTE | 2017-05-07 18:23 | Progress Note ---
Subjective Date of Service: May 07, 2017. Subjective Patient seems of turned a corner today appears much more comfortable at rest however he does have coughing paroxysms when asked to take a deep breath. He says he feels tremulous walking around likely an effect of the steroids and these will be tapered more drastically today Problem List Medical Problems: (1) Asthma exacerbation Status: Acute (2) COPD (chronic obstructive pulmonary disease) Status: Chronic (3) Hypoxia Status: Acute (4) Left sided chest pain Status: Acute (5) Precordial chest pain Status: Acute (6) SOB (shortness of breath) Status: Acute Review of Systems Constitutional: + weakness, No fever, No chills Respiratory: + cough, + sputum, + wheezing, + shortness of breath, + dyspnea on exertion Cardiac: No chest pain, No edema Abdomen: No pain, No nausea, No vomiting, No diarrhea Psychiatric: No depression symptoms, No anhedonism, No anxiety Objective Vital Signs Date Time Temp Pulse Resp B/P (MAP) Pulse Ox O2 Delivery O2 Flow Rate FiO2 05/07/17 16:04 Nasal Cannula 2.0 05/07/17 14:52 36.5 70 18 148/87 (107) 95 05/07/17 14:08 74 20 95 Nasal Cannula 2.0 05/07/17 12:30 Nasal Cannula 2.0 05/07/17 08:00 96 Nasal Cannula 2.0 05/07/17 07:20 80 20 94 Nasal Cannula 2.0 05/07/17 07:10 36.5 77 18 145/87 (106) 93 Room Air 05/07/17 02:08 69 20 92 Nasal Cannula 2.0 05/07/17 00:00 Nasal Cannula 2.0 05/06/17 23:00 36.5 67 18 155/93 (113) 93 Nasal Cannula 2.0 05/06/17 19:37 79 20 94 Nasal Cannula 4.0 Physical Exam General Appearance: WD/WN, + mild distress Eyes: normal inspection, sclerae normal Respiratory/Chest: chest non-tender, + decreased breath sounds, + accessory muscle use, + rhonchi, + pertinent finding (no significant wheezing) Cardiovascular: regular rate, rhythm, no murmur Abdomen: normal bowel sounds, non tender, soft Extremities: no pedal edema, no calf tenderness Neurologic/Psychiatric: alert, oriented x 3 Laboratory Results Last 24 Hours Test 05/06/17 20:32 05/07/17 06:39 05/07/17 07:17 05/07/17 11:35 Bedside Glucose 149 mg/dl 168 mg/dl 150 mg/dl White Blood Count 18.50 K/uL Red Blood Count 4.66 M/uL Hemoglobin 14.7 g/dL Hematocrit 43.0 % Mean Corpuscular Volume 92.3 fL Mean Corpuscular Hemoglobin 31.5 pg Mean Corpuscular Hemoglobin Concent 34.2 g/dl RDW Standard Deviation 46.5 fL RDW Coefficient of Variation 13.8 % Platelet Count 340 K/uL Mean Platelet Volume 9.3 fL Sodium Level 138 mmol/L Potassium Level 4.0 mmol/L Chloride Level 103 mmol/L Carbon Dioxide Level 28 mmol/L Anion Gap 6.0 mmol/L Blood Urea Nitrogen 22 mg/dl Creatinine 1.27 mg/dl Est Creatinine Clear Calc Drug Dose 73.1 ml/min Estimated GFR () 74.8 Estimated GFR (Non- 64.5 BUN/Creatinine Ratio 17.6 Random Glucose 202 mg/dl Calcium Level 8.7 mg/dl Magnesium Level 2.2 mg/dl Assessment and Plan 52 y/o M who was admitted on 05/03 for COPD exacerbation and Influenza A Acute Hypoxic Respiratory Failure and Sepsis 2/2 Influenza A with COPD Exacerbation: -Patient has improved overnight tapering methylprednisolone to prednisone 40 daily - Tamiflu 75 mg BID until 05/08 - Mucinex 1200 mg BID - Mucomyst BID, Xopenex/Atrovent ROSA, Formoterol BID Abdominal Pain: This is resolved - KUB had shown moderate fecal retention - will implement [facility] bowel regimen CAD S/P CABG and HLD/HTN: STABLE no chest pain - M/S pain - Toradol 30 mg IV PRN and Tramadol - Imdur 30 mg daily, Lisinopril 5 mg daily, Lopressor 50 mg BID, and Lovastatin 40 mg daily T2DM: A1c 6.8 tolerating diabetic diet well - NPH 5 units SC BID and SSI Enterococcus UTI - Symptomatic with BPH: Could also play in the patient's sepsis on presentation - Amoxil 500 mg TID - Flomax 0.4 mg HS GERD: Asymptomatic- Protonix 40 mg daily DVT Prophylaxis: SCDs Code Status: FULL RESUSCITATION Continued [facility] stay due to: multiple IV medications needed Discharge planning: home ([facility]
[2017-05-07] MEDS: NORTRIPTYLINE HCL 25 MG CAP PO SCH (20:39)
[2017-05-07] MEDS: LOVASTATIN 20 MG TAB PO SCH (20:40)
[2017-05-07] MEDS: MIRTAZAPINE TAB 15 MG TAB PO SCH (20:40)
[2017-05-07] MEDS: TAMSULOSIN HCL 0.4 MG CAP PO SCH (20:43)
[2017-05-08] VITALS (15 sets, daily range): BP systolic 104–137; BP diastolic 64–84; PULSE 58–88; TEMP 36.4–36.7; O2SAT 88–96
[2017-05-08] MEDS: LEVALBUTEROL 1.25MG/3ML NEB INH SCH ×5 (01:39→19:06)
[2017-05-08] MEDS: IPRATROPIUM BROMIDE NEB SOLN 0.02% 2.5 ML VIAL INH SCH ×5 (01:39→19:06)
[2017-05-08] MEDS: ACETYLCYSTEINE 20% INHAL SOLN ***DISPENSED BY RESP. INH SCH ×2 (07:29→19:05)
[2017-05-08] MEDS: FORMOTEROL FUMA NEBULIZER SOLN 20 MCG/2 ML VIAL INH SCH ×2 (07:30→19:29)
[2017-05-08] MEDS: NYSTATIN OINT 15 GM TUBE EXT SCH ×2 (08:00→20:33)
[2017-05-08] MEDS: INSULIN ASPART 100 UNITS/ML 3 ML PEN SC SCH ×4 (08:42→20:38)
[2017-05-08] MEDS: INSULIN HUMAN NPH SC SCH ×2 (08:43→20:40)
[2017-05-08] MEDS: TIMOLOL MALEATE 0.5% OP SOLN 5 ML BTL OPB SCH (08:45)
[2017-05-08] MEDS: LATANOPROST 0.005% OP SOLN 2.5 ML BTL OP SCH (08:45)
[2017-05-08] MEDS: AMOXICILLIN 500 MG CAP PO SCH ×3 (08:45→20:37)
[2017-05-08] MEDS: ISOSORBIDE MONONITRATE 30 MG TABCR PO SCH (08:46)
[2017-05-08] MEDS: POLYETHYLENE (MIRALAX) 17 GM PACK PO SCH ×2 (08:46→20:30)
[2017-05-08] MEDS: PANTOprazole SOD 40 MG TAB PO SCH (08:47)
[2017-05-08] MEDS: OSELTAMIVIR PHOSPHATE 75 MG CAP PO SCH ×2 (08:47→20:38)
[2017-05-08] MEDS: TRAMADOL HCL 50 MG TAB PO PRN ×2 (09:41→20:31)
[2017-05-08] MEDS: METOPROLOL TARTRATE 50 MG TAB PO SCH ×2 (09:41→20:34)
[2017-05-08] MEDS: SENNA 8.6 MG TAB PO SCH (09:42)
[2017-05-08] MEDS: LISINOPRIL 5 MG TAB PO SCH (09:42)
[2017-05-08] MEDS: GUAIFENESIN 600 MG TABCR PO SCH ×2 (09:42→20:34)
[2017-05-08] MEDS: SODIUM CHLORIDE 0.9% 1000ML 1,000 ML IV SCH ×2 (09:42→22:32)
--- NOTE | 2017-05-08 11:43 | Progress Note ---
Subjective Date of Service: May 08, 2017. Subjective pt continues to improve but still requiring oxygen and having wheezes, no further chest pain Problem List Medical Problems: (1) Asthma exacerbation Status: Acute (2) COPD (chronic obstructive pulmonary disease) Status: Chronic (3) Hypoxia Status: Acute (4) Left sided chest pain Status: Acute (5) Precordial chest pain Status: Acute (6) SOB (shortness of breath) Status: Acute Review of Systems Constitutional: + weakness, No fever, No chills Respiratory: + cough, + sputum, + wheezing (less today ), + shortness of breath , + dyspnea on exertion Cardiac: No chest pain, No edema Abdomen: No pain, No nausea, No vomiting, No diarrhea Neurologic: No memory loss, No weakness Objective Vital Signs Date Time Temp Pulse Resp B/P (MAP) Pulse Ox O2 Delivery O2 Flow Rate FiO2 05/08/17 08:00 91 Nasal Cannula 2.0 05/08/17 07:32 88 20 95 Nasal Cannula 2.0 05/08/17 07:20 36.6 66 20 137/84 (101) 91 2.0 05/08/17 01:39 68 18 96 Nasal Cannula 2.0 05/08/17 00:00 94 Nasal Cannula 2.0 05/07/17 23:00 36.6 58 18 153/92 (112) 96 Nasal Cannula 2.0 05/07/17 19:46 86 20 94 Nasal Cannula 2.0 05/07/17 16:04 Nasal Cannula 2.0 05/07/17 14:52 36.5 70 18 148/87 (107) 95 05/07/17 14:08 74 20 95 Nasal Cannula 2.0 05/07/17 12:30 Nasal Cannula 2.0 Physical Exam General Appearance: WD/WN, + mild distress Eyes: normal inspection, sclerae normal Respiratory/Chest: chest non-tender, + respiratory distress, + decreased breath sounds, + wheezing Cardiovascular: regular rate, rhythm, no murmur Abdomen: normal bowel sounds, non tender, soft Extremities: no pedal edema, no calf tenderness Neurologic/Psychiatric: alert, oriented x 3 Laboratory Results Last 24 Hours Test 05/07/17 16:21 05/07/17 20:21 05/08/17 07:35 Bedside Glucose 78 mg/dl 135 mg/dl 131 mg/dl Assessment and Plan 52 y/o M who was admitted on 05/03 for COPD exacerbation and Influenza A Acute Hypoxic Respiratory Failure and Sepsis 2/2 Influenza A with COPD Exacerbation: -Patient continues to improve and now on prednisone 40 daily, need to try to get off oxygen - Tamiflu 75 mg BID until 05/08 - Mucinex 1200 mg BID - Mucomyst BID, Xopenex/Atrovent ROSA, Formoterol BID Abdominal Pain: This is resolved - KUB had shown moderate fecal retention - will implement [facility] bowel regimen CAD S/P CABG and HLD/HTN: STABLE no further chest pain - M/S pain - Toradol 30 mg IV PRN and Tramadol - Imdur 30 mg daily, Lisinopril 5 mg daily, Lopressor 50 mg BID, and Lovastatin 40 mg daily T2DM: A1c 6.8 tolerating diabetic diet well - NPH 5 units SC BID and SSI Enterococcus UTI - continues to be Symptomatic with BPH: Could also play in the patient's sepsis on presentation - Amoxil 500 mg TID - Flomax 0.4 mg HS GERD: no issues with- Protonix 40 mg daily DVT Prophylaxis: SCDs Code Status: FULL RESUSCITATION Continued [facility] stay due to: multiple IV medications needed Discharge planning: home ([facility])
[2017-05-08] MEDS: KETOROLAC TROMETHAMINE 30 MG/ML VIAL IV PRN (12:34)
[2017-05-08] MEDS ORDERED: NURSING VERBAL MED ORDER ONE (16:45)
[2017-05-08] MEDS ORDERED: MoRPHine SULFATE 2 MG/ML CARP ONE (16:47)
[2017-05-08] MEDS ORDERED: ASPIRIN 81 MG CHEW PO STA (16:50)
[2017-05-08] MEDS ORDERED: MoRPHine SULFATE 2 MG/ML CARP IV PRN (17:00)
[2017-05-08] MEDS ORDERED: MoRPHine SULFATE 4 MG/ML 1 ML CARP\\VIAL IV PRN (17:00)
[2017-05-08] MEDS: MIRTAZAPINE TAB 15 MG TAB PO SCH (20:32)
[2017-05-08] MEDS: NORTRIPTYLINE HCL 25 MG CAP PO SCH (20:33)
[2017-05-08] MEDS: TAMSULOSIN HCL 0.4 MG CAP PO SCH (20:36)
[2017-05-08] MEDS: LOVASTATIN 20 MG TAB PO SCH (20:37)
[2017-05-09 02:02] VITALS: PULSE 69; O2SAT 95
[2017-05-09] MEDS: LEVALBUTEROL 1.25MG/3ML NEB INH SCH ×3 (02:02→14:30)
[2017-05-09] MEDS: IPRATROPIUM BROMIDE NEB SOLN 0.02% 2.5 ML VIAL INH SCH ×3 (02:02→14:30)
[2017-05-09 07:23] VITALS: BP 136/82; PULSE 68; TEMP 36.7; O2SAT 90
[2017-05-09 08:00] VITALS: O2SAT 90
[2017-05-09] MEDS: NYSTATIN OINT 15 GM TUBE EXT SCH (08:00)
[2017-05-09] MEDS ORDERED: ASPIRIN 325 MG ECTAB PO SCH (08:00)
[2017-05-09 08:02] VITALS: PULSE 83; O2SAT 96
[2017-05-09] MEDS: ACETYLCYSTEINE 20% INHAL SOLN ***DISPENSED BY RESP. INH SCH (08:02)
[2017-05-09] MEDS: FORMOTEROL FUMA NEBULIZER SOLN 20 MCG/2 ML VIAL INH SCH (08:02)
[2017-05-09] MEDS: INSULIN HUMAN NPH SC SCH (08:45)
[2017-05-09] MEDS: INSULIN ASPART 100 UNITS/ML 3 ML PEN SC SCH ×2 (08:45→12:33)
[2017-05-09] MEDS: LATANOPROST 0.005% OP SOLN 2.5 ML BTL OP SCH (08:46)
[2017-05-09] MEDS: TIMOLOL MALEATE 0.5% OP SOLN 5 ML BTL OPB SCH (08:46)
[2017-05-09] MEDS: AMOXICILLIN 500 MG CAP PO SCH ×2 (08:47→14:00)
[2017-05-09] MEDS: POLYETHYLENE (MIRALAX) 17 GM PACK PO SCH (08:48)
[2017-05-09] MEDS: ISOSORBIDE MONONITRATE 30 MG TABCR PO SCH (08:48)
[2017-05-09] MEDS: METOPROLOL TARTRATE 50 MG TAB PO SCH (08:48)
[2017-05-09] MEDS: SENNA 8.6 MG TAB PO SCH (08:49)
[2017-05-09] MEDS: PANTOprazole SOD 40 MG TAB PO SCH (08:49)
[2017-05-09] MEDS: GUAIFENESIN 600 MG TABCR PO SCH (08:50)
[2017-05-09] MEDS: LISINOPRIL 5 MG TAB PO SCH (08:50)
[2017-05-09] MEDS ORDERED: ASPI81TA28 PO (11:22)
[2017-05-09] MEDS ORDERED: AMX500 PO (11:22)
[2017-05-09] MEDS ORDERED: MRLP17 PO (11:22)
[2017-05-09] MEDS ORDERED: PRED10TA PO (11:22)
--- NOTE | 2017-05-09 11:29 | Discharge Instructions ---
Discharge Instructions Date of Service May 09, 2017. Admission Reason for Admission: Shortness Of Breath Discharge Discharge Diagnosis / Problem: Influenza A and COPD Exacerbation Discharge Goals Goal(s): Decrease discomfort, Improve function, Increase independence Activity Recommendations Activity Level: Up Ad Akiko . Additional Information Patient informed of condition: Yes Advance Directives: No DNR: No Level of Care: Other Communicable Disease: No Prognosis: Improving Instructions / Follow-Up Instructions / Follow-Up 52 y/o M who was admitted on 05/03 for COPD exacerbation and Influenza A Acute Hypoxic Respiratory Failure and Sepsis 2/2 Influenza A with COPD Exacerbation: - Continues to improve with better air flow in all lung galindo. Continues to have expiratory wheeze but has appropriate saturations on room air. - Performed two step and does not need O2 with ambulation or rest; given H/O COPD likely saturations greater than or equal to 89% is appropriate - Completed a course of Tamiflu during admission - Can continue inhaler as needed for shortness of breath or wheezing - Continue Prednisone taper -- Will take 40 mg x 1 dose on 05/10 then taper as follows -- Prednisone 30 mg daily x 3 days -- Prednisone 20 mg daily x 3 days -- Prednisone 10 mg daily x 3 days - Continues to have intermittent chest discomfort especially with coughing; element of reproducible pain - Depending on how frequent he experiences COPD exacerbations he may benefit from maintenance inhalers or long-acting beta agonists Enterococcus UTI - continues to be Symptomatic with BPH: - Amoxil 500 mg TID x 1 more dose on 05/09 - Flomax 0.4 mg HS Current Hospital Diet Patient's current hospital diet: Regular Diet, Diabetes Type 2 Diet Discharge Diet Recommended Diet: Diabetes Type 2 Diet Pending Studies Studies pending at discharge: no Physician Orders On Transfer POLST Discussion: Not Applicable Laboratory Results Hemoglobin A1c Test 05/04/17 05:27 Range/Units Estimated Average Glucose 148 mg/dl Hemoglobin A1c 6.8 H 4.5-5.6 % Medical Emergencies . Who to Call and When: Medical Emergencies: If at any time you feel your situation is an emergency, please call 911 immediately. . Non-Emergent Contact Non-Emergency issues call your: Primary Care Provider Call Non-Emergent contact if: you have a fever, your pain is concerning you, you have any medication questions . . "Provider Documentation" section prepared by Cesilia Gale. . Core Measure Problem Core Measures: None
[2017-05-09] MEDS: TRAMADOL HCL 50 MG TAB PO PRN (12:36)
[2017-05-09] MEDS ORDERED: IPRASOL4 INH (12:43)
[2017-05-09 13:55] VITALS: BP 136/82; PULSE 83; TEMP 36.7; O2SAT 96
[2017-05-09 14:30] VITALS: PULSE 68; O2SAT 93
--- NOTE | 2017-05-09 15:54 | Discharge Summary ---
Discharge Summary Date of Service May 09, 2017. Discharge Summary Admission Date: May 03, 2017 at 15:37 Discharge Date: May 09, 2017 Discharge Disposition: Home Principal Diagnosis: copd exacerbation, influenza,. sepsis Problems/Secondary Diagnoses: (1) COPD (chronic obstructive pulmonary disease) Status: Chronic Immunizations: Have You Had Influenza Vaccine: Yes History of Tetanus Vaccine?: Yes History of Pneumococcal: Yes History of Hepatitis B Vaccine: Yes Procedures: ct chest 05/03 IMPRESSION: 1. No acute aortic pathology or evidence of pulmonary thromboembolic disease. 2. Mild cardiomegaly with prior median sternotomy and CABG. 3. Mild bilateral bronchial wall thickening suggests bronchitis with areas of mild mucous plugging. Minimal subsegmental bibasilar atelectasis without lobar airspace consolidation to suggest pneumonia. Medication Reconciliation New Medications: Aspirin (Aspirin Ec) 81 Mg Tab 81 MG PO DAILY for 30 Days, #30 TABS Ipratropium-Albuterol (Duoneb) 3 Ml Nebu 1 TREATMENT INH Q4H for 5 Days, INHA Amoxicillin (Amoxicillin) 500 Mg Cap 500 MG PO TID, #1 CAP Take one dose the evening of 05/09. Polyethylene (Miralax) 17 Gm Pow 17 GM PO BID for 7 Days, #14 PKT Prednisone Tab (Prednisone) 10 Mg Tab 10 MG PO UD, #22 TAB Take 40 mg x 1 day on 05/10. Then 30 mg x 3 days, then 20 mg x 3 days, then 10 mg x 3 days Continued Medications: Albuterol Hfa (Ventolin Hfa) 200 Puffs/42309 Mcg Aers 2 PUFFS INH QID PRN for SOB/Wheezing, #1 INHALER Insulin Human NPH (Humulin N) 100 Units/Ml Susp 5 UNITS SC BID Isosorbide Mononitrate (Isosorbide Mononitrate ER) 30 Mg Tabcr 30 MG PO DAILY for 30 Days, #30 TABS Latanoprost (Xalatan 0.005% Oph Daniella) 0.005 % Daniella 1 DROPS OP DAILY, #2.5 ML 3 Refills Lisinopril (Prinivil) 5 Mg Tab 5 MG PO DAILY, TAB Lovastatin (Mevacor) 40 Mg Tab 40 MG PO HS, TAB Metoprolol Tartrate (Lopressor) (Lopressor) 50 Mg Tab 50 MG PO BID, TAB Miconazole Nitrate Vaginal (Miconazole) 2 % Cre 1 APPLN TOP BID Mirtazapine Soltab (Remeron Soltab) 15 Mg Soltab 15 MG PO HS, TAB Nitroglycerin (Nitrostat) 0.4 Mg Tab 0.4 MG UT PRN, BTL Nortriptyline (Pamelor) 50 Mg Cap 50 MG PO HS Nystatin (Topical) (Nystatin) 100,000 Unit/Gm Oin 1 APPLN TOP BID for 5 Days, #15 GM Omeprazole ([facility]vs Omeprazole) 20 Mg Tab 20 MG PO DAILY Tamsulosin Hcl (Flomax) 0.4 Mg Cap 0.4 MG PO HS Timolol Maleate (Timolol 0.5% Oph Soln 15 Ml) 15 Ml Soln 1 DROP OPB QAM Discharge Exam Review of Systems: Constitutional: No fever, No chills Respiratory: + shortness of breath, + dyspnea on exertion, No cough, No sputum Cardiovascular: No chest pain, No edema Physical Exam: General Appearance: WD/WN, no apparent distress Eyes: normal inspection, sclerae normal Neck: supple, no JVD Respiratory/Chest: chest non-tender, lungs clear, + accessory muscle use Cardiovascular: regular rate, rhythm, no murmur (April 12) Abdomen / GI: normal bowel sounds (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), soft Hospital Course 52 y/o M who was admitted on 05/03 for COPD exacerbation and Influenza A Acute Hypoxic Respiratory Failure and Sepsis 2/2 Influenza A with COPD Exacerbation: -prednisone 40 daily with taper, had guards ambulate in unit, does not need oxygen - Tamiflu 75 mg BID until 05/08 - Mucinex 1200 mg BID - Mucomyst BID, will remain on nebulized medications when returns to halfway Abdominal Pain: This is resolved - KUB had shown moderate fecal retention CAD S/P CABG and HLD/HTN: has had intermittent chest pain resolved with nitro as is his usual - Imdur 30 mg daily, Lisinopril 5 mg daily, Lopressor 50 mg BID, and Lovastatin 40 mg daily T2DM: A1c 6.8 tolerating diabetic diet well - NPH 5 units SC BID Enterococcus UTI - : Could have it was going also play in the patient's sepsis on presentation - Amoxil 500 mg TID - Flomax 0.4 mg HS GERD: no issues with- Protonix 40 mg daily Total Time Spent: Greater than 30 minutes This includes examination of the patient, discharge planning, medication reconciliation, and communication with other providers. Discharge Instructions Please refer to the electronic Patient Visit Report (Discharge Instructions) for additional information.
== END 2017-05-09 17:52 | DRG 871 ==
LOC: EDBD 11:07 → C.EDC 11:08 → UNDOADMIN 15:37 → C.2E 15:37 → ENRESERV 15:45 → EDBEDREQ 05-05 13:20 → ENRESERV 05-05 14:39 → C.MS4W 05-05 15:17 → C.2E 05-05 15:17
PROVIDERS: ADMIT Family Medicine; ATTEND Internal Medicine
DX: A41.89 Other specified sepsis (principal); J10.1 Influenza due to other identified influenza virus with other respiratory manifestations; N39.0 Urinary tract infection, site not specified; J96.01 Acute respiratory failure with hypoxia; J44.1 Chronic obstructive pulmonary disease with (acute) exacerbation; B95.2 Enterococcus as the cause of diseases classified elsewhere; K59.00 Constipation, unspecified; I25.10 Atherosclerotic heart disease of native coronary artery without angina pectoris; I11.9 Hypertensive heart disease without heart failure; E11.9 Type 2 diabetes mellitus without complications; K21.9 Gastro-esophageal reflux disease without esophagitis; J45.909 Unspecified asthma, uncomplicated; H40.9 Unspecified glaucoma; E78.5 Hyperlipidemia, unspecified; N40.0 Benign prostatic hyperplasia without lower urinary tract symptoms; F32.9 Major depressive disorder, single episode, unspecified; Z79.899 Other long term (current) drug therapy; Z79.4 Long term (current) use of insulin; Z95.1 Presence of aortocoronary bypass graft; Z87.891 Personal history of nicotine dependence; Z80.0 Family history of malignant neoplasm of digestive organs